=== PATIENT | male | born 1955 | race Native Hawaiian/Other Pacific Islander ===

== ENCOUNTER 2017-04-09 14:15 | Inpatient (IN) | payer OTHER ==
[2017-04-09 14:16] VITALS: BMI 34.7
[2017-04-09] MEDS ORDERED: Albuterol 0.083% Inhal Sol (2.5 mg/3 mL) UD IH STA (15:44)
[2017-04-09 15:52] LABS: BASO % 0.4 % (0.0-2.0); EOS # 0.2 K/uL (0.0-0.7); EOS % 1.8 % (0.0-4.0); HEMOGLOBIN 15.5 g/dL (12.0-18.0); LYMPH # 0.8 K/uL (1.0-4.3); LYMPH % 7.8 % (20.0-40.0); MEAN CELL VOLUME 88.5 fL (80.0-94.0); MEAN CORPUSCULAR HEMOGLOBIN 30.9 pg (27.0-31.0); MEAN CORPUSCULAR HGB CONC 34.9 g/dL (33.0-37.0); MEAN PLATELET VOLUME 8.8 fL (7.2-11.7); MONO # 1.1 K/uL (0.0-0.8); MONO % 10.7 % (0.0-10.0); NEUT # 8.3 K/uL (1.8-7.0); NEUT % 79.3 % (50.0-75.0); PLATELET COUNT 174 K/uL (130-400); RBC 5.02 Mil/uL (4.40-5.90); RED CELL DISTRIBUTION WIDTH 14.3 % (11.5-14.5); WHITE BLOOD COUNT 10.5 K/uL (4.8-10.8)
[2017-04-09] MEDS ORDERED: Albuterol 0.083% Inhal Sol (2.5 mg/3 mL) UD ONE (15:56)
[2017-04-09 16:08] LABS: INR 1.2; PROTHROMBIN TIME 13.6 SECONDS (9.7-12.2)
[2017-04-09 16:25] LABS: ALB/GLOB RATIO 1.1 (1.0-2.1); ALBUMIN 4.1 g/dL (3.5-5.0); CALCIUM 8.2 mg/dl (8.6-10.4)
[2017-04-09 16:35] LABS: CK-MB 5.06 ng/mL (0.0-3.38); TROPONIN I 0.077 ng/mL (0.00-0.120)
--- NOTE | 2017-04-09 16:37 | C.PDOC ---
History Of Present Illness 61-year-old male, presents to the emergency department complaining of productive cough with clear sputum x4 days, shortness of breath, and chills. He denies chest pain. Patient has an AICD, that has been in for approximately a year. Today, it "beeped" twice, but did not deliver any shocks. He denies palpitations. No other complaints at this time. Time Seen by Provider: 04/09/17 15:30 Chief Complaint (Nursing): Flu-like Symptoms Past Medical History Vital Signs: Last Vital Signs Temp 99.6 F 04/09/17 14:29 Pulse 97 H 04/09/17 14:29 Resp 18 04/09/17 14:29 BP 145/95 H 04/09/17 14:29 Pulse Ox 97 04/09/17 16:55 - Medical History PMH: Cardia Arrhythmia, CHF, HTN, Hypercholesterolemia, Kidney Stones, Chronic Kidney Disease Denies: Alzheimer's Disease, Anemia, Asthma, Bipolar Disorder, Bronchitis, COPD, Crohn's Disease, Depression, Diverticulitis, Emphysema, Fibromyalgia, Fractures, Gastrointestinal Ulcer, Gall Bladder Disease, HIV, Hyperthyroidism, Hypothyroidism, Migraine, Mitral Valve Prolapse, Osteoporosis, Pancreatitis, Paranoia, Parkinson's Disease, Peripheral Edema, Pneumonia, Post Traumatic Stress Disorder, Schizophrenia, Seizures, Sickle Cell Disease, Sexually Transmitted Disease, Sleep Apnea, TIA Surgical History: CABG, Coronary Stent, Pacemaker (ICD) Denies: Appendectomy, Cholecystectomy - [facility] Procedures CONTRAST ARTERIOGRAM-LEG (11/22/13) CORONAR ARTERIOGR-2 CATH (11/22/13) FLUOROSCOPY OF LEFT HEART USING LOW OSMOLAR CONTRAST (02/18/15) FLUOROSCOPY OF SINGLE CORONARY ARTERY USING L OSM CONTRAST (02/18/15) INJECT/INFUSE PLATELET INHIBITOR (11/22/13) INSERTION OF THREE VASCULAR STENTS (11/22/13) INSRT OF DRUG-ELUTING CORON ARTERY STENTS(S) (11/22/13) LEFT HEART CARDIAC CATH (11/22/13) LT HEART ANGIOCARDIOGRAM (11/22/13) MEASURE CARDIAC SAMPL & PRESSURE, BILATERAL, PERC (02/18/15) PERCUTANEOUS TRANSLUMINAL CORONARY ANGIOPLASTY [PTCA] (11/22/13) PROCEDURE ON SINGLE VESSEL (11/22/13) Family History: States: Unknown Family Hx - Social History Hx Alcohol Use: No Hx Substance Use: No - Immunization History Hx Tetanus Toxoid Vaccination: No Hx Influenza Vaccination: No Hx Pneumococcal Vaccination: No Review Of Systems Except As Marked, All Systems Reviewed And Found Negative. Constitutional: Negative for: Fever, Chills Cardiovascular: Negative for: Chest Pain Respiratory: Positive for: Cough, Sputum Gastrointestinal: Negative for: Nausea, Vomiting Musculoskeletal: Negative for: Back Pain Neurological: Negative for: Weakness, Numbness, Headache, Dizziness Physical Exam - Physical Exam Appears: Non-toxic, No Acute Distress, Other (coughing intermittently, able to speak in full sentences) Skin: Warm, Dry, No Rash Head: Atraumatic, Normacephalic Eye(s): bilateral: Normal Inspection, PERRL Nose: Normal Oral Mucosa: Moist Lips: Normal Appearing Neck: Normal ROM Chest: Symmetrical, Other ( AICD in left upper chest) Cardiovascular: Rhythm Regular, No Murmur Respiratory: No Accessory Muscle Use, Rales (B/L), Wheezing (scattered, expiratory.), Other (No accessory muscle use) Gastrointestinal/Abdominal: Soft, No Tenderness Extremity: Normal ROM, Pedal Edema (Pitting, trace, B/L) Neurological/Psych: Oriented x3, Normal Speech ED Course And Treatment - Laboratory Results Result Diagrams: 04/09/17 15:48 04/09/17 15:48 O2 Sat by Pulse Oximetry: 97 (on RA) Pulse Ox Interpretation: Normal - Radiology CXR: Interpreted by Me, Viewed By Me CXR Interpretation: Yes: Cardiomegaly, Other (AICD in place. No infiltrates or effusions) Progress Note: Bloodwork, Chest XR, Rapid flu ordered and reviewed. Patient treated with Duoneb, Lasix and Tessalon. Disposition - Disposition Forms: PT [facility] [facility] (Czech) - Scribe Statement The provider has reviewed the documentation as recorded by the Scribe (Maldonado Hernandez) All medical record entries made by the Scribe were at my direction and personally dictated by me. I have reviewed the chart and agree that the record accurately reflects my personal performance of the history, physical exam, medical decision making, and the department course for this patient. I have also personally directed, reviewed, and agree with the discharge instructions and disposition.
[2017-04-09 17:18] LABS: BANDS 8 % (0-2); EOSINOPHIL 5 % (0-4); LYMPHOCYTE 1 % (20-40); MICROCYTOSIS SLIGHT; MONOCYTE 10 % (0-10); NEUTROPHIL 76 % (50-75); PLATELET ESTIMATE NORMAL (NORMAL); TOTAL CELLS COUNTED 100
[2017-04-09 17:19] LABS: LARGE PLATELETS PRESENT
--- NOTE | 2017-04-09 17:36 | RAD ---
PROCEDURE: CHEST RADIOGRAPH, 1 VIEW HISTORY: SOB COMPARISON: Comparison is made with the previous study dated 02/25/2016 FINDINGS: LUNGS: No evidence of new infiltrate or consolidation in the lungs. PLEURA: No pneumothorax or pleural fluid seen. CARDIOVASCULAR: The cardiac silhouette is enlarged. Again seen is left-sided pacemaker in place. OSSEOUS STRUCTURES: No significant abnormalities. VISUALIZED UPPER ABDOMEN: Normal. OTHER FINDINGS: None. IMPRESSION: No active disease. Moderately enlarged cardiac silhouette.
--- NOTE | 2017-04-09 17:42 | CP.PCM.HP ---
History of Present Illness - History of Present Illness History of Present Illness: CC: "I keep coughing" Mr Otto is a 61 year old male with a PMHx of systolic CHF, CAD w/ hx of CO and 4 stents, HLD, AICD who presents to the ER with worsening shortness of breath. He says that 7 days ago he developed a sore throat which became progressively worse. He also began having coughing fits productive of white/ yellow/green/blood-tinged sputum. He took robitussin which didn't improve his symptoms. There is associated shortness of breath with the cough. He also states that yesterday during a coughing fit his AICD went off twice but did not shock him. He denies chest pain, abdominal pain, increased edema, focal deficits , diarrhea, nausea, fever. Pmhx: Cardia Arrhythmia with AICD, HTN, HLD, systolic CHF on LifeVest, CAD s/p 4 stents, Hx of CO (Nov 2014) Pshx: 4 coronary stents (Nov 2014 at [facility]); Triple bypass 2014; AICD 08/2015 Family Hx: dad- heart disease Social Hx: former smoker- used to smoke 3ppd x many years, quit in 1998. former ETOH use- drank heavily and does not drink anymore. denies illicit drug use. lives with brother. cannot work due to heart condition Allergies: benzalkonium chloride, contact metal agent, seafood PMD: [facility] Cardio: Seen by Dr. Landin in the past Present on Admission - Present on Admission Any Indicators Present on Admission: No Review of Systems - Constitutional Constitutional: absent: Chills, Fever, Weight Gain, Weight Loss - EENT Eyes: absent: Change in Vision - Cardiovascular Cardiovascular: Edema. absent: Chest Pain, Diaphoresis, Irregular Heart Rhythm - Respiratory Respiratory: Cough, Dyspnea on Exertion, Wheezing - Gastrointestinal Gastrointestinal: absent: Abdominal Pain, Constipation, Diarrhea - Genitourinary Genitourinary: absent: Dysuria - Neurological Neurological: absent: Dizziness Past Patient History - Infectious Disease Hx of Infectious Diseases: None - Tetanus Immunizations Tetanus Immunization: Unknown - Past Medical History & Family History Past Medical History?: Yes - Past Social History Smoking Status: Never Smoked - CARDIAC Hx Cardia Arrhythmia: Yes Hx Congestive Heart Failure: Yes Hx Hypercholesterolemia: Yes Hx Hypertension: Yes Hx Mitral Valve Prolapse: No Hx Pacemaker: Yes (ICD) Hx Peripheral Edema: No - PULMONARY Hx Asthma: No Hx Bronchitis: No Hx Chronic Obstructive Pulmonary Disease (COPD): No Hx Emphysema: No Hx Pneumonia: No Hx Sleep Apnea: No - NEUROLOGICAL Hx Alzheimer's Disease: No Hx Migraine: No Hx Parkinson's Disease: No Hx Seizures: No Hx Transient Ischemic Attacks (TIA): No - HEENT Hx HEENT Problems: No - RENAL Hx Chronic Kidney Disease: Yes Hx Kidney Stones: Yes - ENDOCRINE/METABOLIC Hx Hyperthyroidism: No Hx Hypothyroidism: No - HEMATOLOGICAL/ONCOLOGICAL Hx Anemia: No Hx Human Immunodeficiency Virus (HIV): No Hx Sickle Cell Disease: No - INTEGUMENTARY Hx Dermatological Problems: No - MUSCULOSKELETAL/RHEUMATOLOGICAL Hx Fractures: No Hx Osteoporosis: No - GASTROINTESTINAL Hx Crohn's Disease: No Hx Diverticulitis: No Hx Gall Bladder Disease: No Hx Pancreatitis: No - GENITOURINARY/GYNECOLOGICAL Hx Sexually Transmitted Disorders: No - PSYCHIATRIC Hx Bipolar Disorder: No Hx Depression: No Hx Paranoia: No Hx Post Traumatic Stress Disorder: No Hx Schizophrenia: No Hx Substance Use: No - SURGICAL HISTORY Hx Appendectomy: No Hx Cholecystectomy: No Hx Coronary Artery Bypass Graft: Yes Hx Coronary Stent: Yes - ANESTHESIA Hx Anesthesia: Yes Hx Anesthesia Reactions: No Hx Malignant Hyperthermia: No Meds Allergies/Adverse Reactions: Allergies Allergy/AdvReac Type Severity Reaction Status Date / Time benzalkonium chloride Allergy Verified 08/20/15 19:02 [From Merthiolate (benzalkonium)] contact metal agent Allergy Verified 08/20/15 19:02 seafood Allergy Uncoded 07/02/15 16:42 Physical Exam - Constitutional Appears: No Acute Distress, Chronically Ill - Head Exam Head Exam: ATRAUMATIC, NORMAL INSPECTION - Eye Exam Eye Exam: EOMI - ENT Exam ENT Exam: Mucous Membranes Moist, Normal Oropharynx - Neck Exam Neck exam: Positive for: Normal Inspection. Negative for: Tenderness - Respiratory Exam Respiratory Exam: Rales, Rhonchi, Wheezes, NORMAL BREATHING PATTERN - Cardiovascular Exam Cardiovascular Exam: REGULAR RHYTHM, +S1, +S2. absent: Bradycardia, Tachycardia , JVD, Systolic Murmur - GI/Abdominal Exam GI & Abdominal Exam: Normal Bowel Sounds, Soft. absent: Guarding, Rebound, Rigid, Tenderness - Extremities Exam Extremities exam: Positive for: normal inspection, pedal edema - Neurological Exam Neurological exam: Alert, CN II-XII Intact, Normal Gait, Oriented x3 - Psychiatric Exam Psychiatric exam: Normal Affect, Normal Mood - Skin Skin Exam: Intact, Normal Color, Warm Results - Vital Signs Recent Vital Signs: Last Vital Signs Temp 99.6 F 04/09/17 14:29 Pulse 97 H 04/09/17 14:29 Resp 18 04/09/17 14:29 BP 145/95 H 04/09/17 14:29 Pulse Ox 97 04/09/17 17:26 - Labs Result Diagrams: 04/09/17 15:48 04/09/17 15:48 Labs: Laboratory Results - last 24 hr 04/09/17 04/09/17 04/09/17 15:48 15:48 15:48 WBC 10.5 RBC 5.02 Hgb 15.5 Hct 44.4 MCV 88.5 MCH 30.9 MCHC 34.9 RDW 14.3 Plt Count 174 MPV 8.8 Neut % (Auto) 79.3 H Lymph % (Auto) 7.8 L Hart % (Auto) 10.7 H Eos % (Auto) 1.8 Baso % (Auto) 0.4 Neut # 8.3 H Lymph # 0.8 L Hart # 1.1 H Eos # 0.2 Baso # 0.0 Neutrophils % (Manual) 76 H Band Neutrophils % 8 H Lymphocytes % (Manual) 1 L Monocytes % (Manual) 10 Eosinophils % (Manual) 5 H Platelet Estimate Normal Large Platelets Present Microcytosis (manual) Slight PT 13.6 H INR 1.2 APTT 32 Sodium 131 L Potassium 3.6 Chloride 97 L Carbon Dioxide 24 Anion Gap 14 BUN 33 H Creatinine 1.7 H Est GFR ( Amer) 50 Est GFR (Non-Af Amer) 41 POC Glucose (mg/dL) Random Glucose 86 Calcium 8.2 L Total Bilirubin 1.5 H AST 58 ALT 33 Alkaline Phosphatase 58 Total Creatine Kinase 1067 H CK-MB (Mass) 5.06 H Troponin I 0.0770 NT-Pro-B Natriuret Pep 4930 H Total Protein 7.9 Albumin 4.1 Globulin 3.8 Albumin/Globulin Ratio 1.1 Influenza Typ A,B (EIA) 04/09/17 04/09/17 16:03 17:00 WBC RBC Hgb Hct MCV MCH MCHC RDW Plt Count MPV Neut % (Auto) Lymph % (Auto) Hart % (Auto) Eos % (Auto) Baso % (Auto) Neut # Lymph # Hart # Eos # Baso # Neutrophils % (Manual) Band Neutrophils % Lymphocytes % (Manual) Monocytes % (Manual) Eosinophils % (Manual) Platelet Estimate Large Platelets Microcytosis (manual) PT INR APTT Sodium Potassium Chloride Carbon Dioxide Anion Gap BUN Creatinine Est GFR ( Amer) Est GFR (Non-Af Amer) POC Glucose (mg/dL) 67 Random Glucose Calcium Total Bilirubin AST ALT Alkaline Phosphatase Total Creatine Kinase CK-MB (Mass) Troponin I NT-Pro-B Natriuret Pep Total Protein Albumin Globulin Albumin/Globulin Ratio Influenza Typ A,B (EIA) Negative for flu a/b Assessment & Plan (1) Cough Assessment and Plan: Cough associated with shortness of breath F/U Chest CT w/o contrast F/U Facial CT w/o contrast F/U strep pneumoniae Ag, legionella Ag, Mycoplasma IgM F/U Blood culture, Urine culture, Sputum culture Influenza swab NEGATIVE Meds: Moxifloxacin 400mg IVPB QD Duoneb 3ml INH RQ6H Solumedrol 40mg IVP BID Status: Acute Priority: Medium (2) Systolic CHF, chronic Assessment and Plan: Cardiology consult, Dr Doan Hx of CABG; Hx of 4 stents; Prior Echo showed EF of 20-25% Pro-bnp 4930 F/U Echo Con't home med Coreg 3.125mg PO BID Lasix 20mg IVP BID Con't home med Losartan 50mg PO QD Status: Chronic Priority: High (3) Hyperlipidemia Assessment and Plan: Lipid panel from 11/2016 NORMAL Crestor 5mg PO HS (home med atorvastatin not carried here) Status: Chronic Priority: Medium (4) Acute renal failure Assessment and Plan: Patient making normal urinary output monitor Status: Acute Priority: High (5) CAD (coronary artery disease) Assessment and Plan: Hx of CO 2014; Hx of 4 stents Troponins negative x1 F/U repeat Troponins con't home med plavix 75mg PO QD Status: Chronic Priority: High (6) Hx of gout Assessment and Plan: Con't home med allopurinol 100mg PO QD Status: Chronic Priority: Medium (7) HTN (hypertension) Assessment and Plan: BP well controlled con't home med coreg 3.125mg PO BID con't home med cozaar 50mg PO QD Status: Chronic Priority: High (8) Prophylactic measure Assessment and Plan: SCDs; con't home med plavix 75mg PO QD Protonix 40mg PO QD Heart healthy diet Status: Acute Priority: Low
[2017-04-09] MEDS ORDERED: Moxifloxacin IV 400mg/250ml NS 400 MG/250 ML BAG IVPB SCH (19:00)
[2017-04-09] MEDS: MethylPREDNISolone 40 mg Vial IVP SCH (21:20)
[2017-04-09 22:01] LABS: CK-MB 4.94 ng/mL (0.0-3.38); TROPONIN I 0.078 ng/mL (0.00-0.120)
[2017-04-10] MEDS: Albuterol-Ipratrop 3 mg / 0.5 (3 ml) UD INH SCH ×4 (02:01→21:41)
[2017-04-10 03:29] LABS: BASO % 0.3 % (0.0-2.0); HEMOGLOBIN 15.4 g/dL (12.0-18.0); LYMPH # 0.6 K/uL (1.0-4.3); LYMPH % 6.6 % (20.0-40.0); MEAN CELL VOLUME 89.5 fL (80.0-94.0); MEAN CORPUSCULAR HEMOGLOBIN 31.5 pg (27.0-31.0); MEAN CORPUSCULAR HGB CONC 35.2 g/dL (33.0-37.0); MEAN PLATELET VOLUME 9.5 fL (7.2-11.7); MONO # 0.2 K/uL (0.0-0.8); MONO % 2.1 % (0.0-10.0); NEUT # 8.3 K/uL (1.8-7.0); PLATELET COUNT 205 K/uL (130-400); RBC 4.89 Mil/uL (4.40-5.90); RED CELL DISTRIBUTION WIDTH 14.3 % (11.5-14.5); WHITE BLOOD COUNT 9.2 K/uL (4.8-10.8)
[2017-04-10] MEDS: Benzocaine/Menthol (Cepacol) Lozenge MT PRN (03:30)
[2017-04-10 04:07] LABS: CK-MB 4.28 ng/mL (0.0-3.38); TROPONIN I 0.076 ng/mL (0.00-0.120)
[2017-04-10 04:13] LABS: ALB/GLOB RATIO 1.1 (1.0-2.1); ALBUMIN 3.9 g/dL (3.5-5.0); CALCIUM 7.9 mg/dl (8.6-10.4); MAGNESIUM 2.1 mg/dL (1.6-2.3)
[2017-04-10 05:04] LABS: BANDS 1 % (0-2); LYMPHOCYTE 5 % (20-40); MONOCYTE 1 % (0-10); NEUTROPHIL 93 % (50-75); PLATELET ESTIMATE NORMAL (NORMAL); TOTAL CELLS COUNTED 100
[2017-04-10] MEDS: MethylPREDNISolone 40 mg Vial IVP SCH ×2 (10:25→17:40)
--- NOTE | 2017-04-10 11:01 | CT ---
CT chest without IV contrast Indication: possible URI; need to see fluid status; effusion? Technique: Contiguous axial images were obtained through the chest without intravenous contrast enhancement. Sagittal and coronal reconstructions were generated and reviewed. This CT exam was performed using 1 or more of the falling dose reduction techniques: Automated exposure control, adjustment of the MAA and/or kV according to patient size, and/or use of iterative reconstruction technique. Radiation dose (DLP): 506.64 MGy-cm. Comparison: Chest x-ray performed 04/09/27 Findings: Visualized portions of the inferior thyroid gland appear unremarkable. The unenhanced mediastinal and hilar vascular structures appear grossly unremarkable. Cardiomegaly. Streak artifact from patient's left-sided pacemaker. Median sternotomy wires. LAD coronary artery stent. Coronary artery calcifications. Discoid atelectasis or scar within the inferior aspect of the left upper lobe. Minimal bibasilar atelectasis. No focal consolidation. No pleural effusion. No pneumothorax. No suspicious pulmonary nodules measuring greater than 5 mm. Limited visualization of the noncontrast upper abdomen demonstrates cholelithiasis. Mild degenerative changes of the spine. Impression: No acute findings appreciated. Cholelithiasis. Cardiomegaly. Additional incidental findings as above. Preliminary impression was provided by virtual radiologic.
--- NOTE | 2017-04-10 13:39 | CARD ---
APPROVED REPORT EKG Measurement Heart [id number] <Conclusion> Atrial-sensed ventricular-paced rhythm Abnormal ECG
--- NOTE | 2017-04-10 14:16 | CP.PCM.PN ---
<Cris Archuleta - Last Filed: 04/10/17 14:11> Subjective - Date & Time of Evaluation Date of Evaluation: 04/10/17 Time of Evaluation: 09:00 - Subjective Subjective: Patient has been seen and examined. No overnight events reported. When asked how he is doing, he reports "surviving". He states that his SOB and cough are improved from yesterday but not resolved. He denies any chest pain, abdominal pain, changes in bowel habits, or urinary symptoms. Objective - Vital Signs/Intake and Output Vital Signs (last 24 hours): Temp Pulse Resp BP Pulse Ox 98.5 F 88 20 120/75 95 04/10/17 07:55 04/10/17 10:25 04/10/17 07:55 04/10/17 10:25 04/10/17 07:55 Intake and Output: 04/10/17 04/10/17 06:59 18:59 Intake Total 320 Output Total 1650 Balance -1330 - Medications Medications: Current Medications Albuterol/Ipratropium (Duoneb 3 Mg/0.5 Mg (3 Ml) Ud) 3 ml INH RQ6 [facility] Last Admin: 04/10/17 13:09 Dose: 3 ml Allopurinol (Zyloprim) 100 mg PO DAILY [facility] Last Admin: 04/10/17 10:24 Dose: 100 mg Benzocaine/Menthol (Cepacol Sore Throat) 1 kimberly MT Q2H PRN PRN Reason: Sore Throat Last Admin: 04/10/17 03:30 Dose: 1 kimberly Carvedilol (Coreg) 3.125 mg PO BID [facility] Last Admin: 04/10/17 10:25 Dose: 3.125 mg Clopidogrel Bisulfate (Plavix) 75 mg PO DAILY [facility] Last Admin: 04/10/17 10:24 Dose: 75 mg Famotidine (Pepcid) 20 mg PO DAILY [facility] Last Admin: 04/10/17 10:24 Dose: 20 mg Fluticasone Propionate (Flonase) 0 spr THERESA DAILY [facility] Furosemide (Lasix) 20 mg IVP BID [facility] Last Admin: 04/10/17 10:25 Dose: 20 mg Heparin Sodium (Porcine) (Heparin) 5,000 units SC Q12 [facility] Last Admin: 04/10/17 10:26 Dose: 5,000 units Doxycycline Hyclate 100 mg/ (Sodium Chloride) 100 mls @ 100 mls/hr IVPB Q12H [facility] Stop: 04/17/17 10:01 Last Admin: 04/10/17 10:24 Dose: 100 mls/hr Losartan Potassium (Cozaar) 50 mg PO DAILY [facility] Last Admin: 04/10/17 10:25 Dose: 50 mg Methylprednisolone (Solu-Medrol) 40 mg IVP BID [facility] Last Admin: 04/10/17 10:25 Dose: 40 mg Promethazine HCl/Codeine (Phenergan/Codeine Oral Syrup) 5 ml PO Q4 PRN PRN Reason: Cough Rosuvastatin Calcium (Crestor) 5 mg PO HS [facility] Last Admin: 04/09/17 21:30 Dose: 5 mg - Labs Labs: 04/10/17 03:22 04/10/17 03:22 PT 13.6 SECONDS (9.7-12.2) H 04/09/17 15:48 INR 1.2 04/09/17 15:48 APTT 32 SECONDS (21-34) 04/09/17 15:48 - Additional Findings Additional findings: - Constitutional Appears: No Acute Distress, Chronically Ill - Head Exam Head Exam: ATRAUMATIC, NORMAL INSPECTION - Eye Exam Eye Exam: EOMI - ENT Exam ENT Exam: Mucous Membranes Moist, Normal Oropharynx - Neck Exam Neck exam: Positive for: Normal Inspection. Negative for: Tenderness - Respiratory Exam Respiratory Exam: Rales, Rhonchi, Wheezes, NORMAL BREATHING PATTERN - Cardiovascular Exam Cardiovascular Exam: REGULAR RHYTHM, +S1, +S2. absent: Bradycardia, Tachycardia , JVD, Systolic Murmur - GI/Abdominal Exam GI & Abdominal Exam: Normal Bowel Sounds, Soft. absent: Guarding, Rebound, Rigid, Tenderness - Extremities Exam Extremities exam: Positive for: normal inspection, pedal edema - Neurological Exam Neurological exam: Alert, CN II-XII Intact, Normal Gait, Oriented x3 - Psychiatric Exam Psychiatric exam: Normal Affect, Normal Mood - Skin Skin Exam: Intact, Normal Color, Warm Assessment and Plan - Assessment and Plan (Free Text) Assessment: 61 year old male with a PMHx of systolic CHF, CAD w/ hx of MT and 4 stents, and HLD admitted for evaluation and treatment of SOB w/ cough. Plan: (1) Cough Cough associated with shortness of breath Chest CT w/o contrast (04/09/17): No acute findings. Cholelithiasis, Cardiomegaly , mild djd of spine. F/U Facial CT w/o contrast (04/09/17): Sinusitis, pending offical read. strep pneumoniae Ag - PENDING, legionella Ag - NEGATIVE, Mycoplasma IgM - PENDING Blood/Urine Cultures - PENDING Sputum Cultures - Last culture was contaminated, Reordered. Influenza swab NEGATIVE Meds: Moxifloxacin 400mg IVPB QD DC'd. Started Doxycycline for Sinusitis 100mg IVPB Q12H; Consider Augmentin vs Amoxicillin. Duoneb 3ml INH RQ6H Solumedrol 40mg IVP BID (2) Systolic CHF, chronic Cardiology consult, Dr Doan Hx of CABG; Hx of 4 stents; Prior Echo showed EF of 20-25% Pro-bnp 4930 on admission Repeat ECHO ordered yesterday. Patient has ECHO from 12/21/16 that shows severe systolic dysfunction with an EF of 15-20% Con't home med Coreg 3.125mg PO BID Lasix 20mg IVP BID Con't home med Losartan 50mg PO QD (3) Hyperlipidemia Lipid panel from 11/2016 NORMAL Crestor 5mg PO HS (home med atorvastatin not carried here) (4) Acute renal failure (Improving) Patient making normal urinary output monitor (5) CAD (coronary artery disease) Hx of MT 2014; Hx of 4 stents Troponins NEGATIVE x 3 con't home med plavix 75mg PO QD Total CK downtrending (6) Hx of gout Con't home med allopurinol 100mg PO QD (7) HTN (hypertension) BP well controlled con't home med coreg 3.125mg PO BID con't home med cozaar 50mg PO QD (8) Prophylactic measure Assessment and Plan: SCDs; con't home med plavix 75mg PO QD Protonix 40mg PO QD Heart healthy diet Dispo: Called KEE at to interrogate the AICD. Will follow up. Patient seen and discussed with Attending Cris Archuleta. <Eve Nogueira V - Last Filed: 04/10/17 19:21> Objective - Vital Signs/Intake and Output Vital Signs (last 24 hours): Temp Pulse Resp BP Pulse Ox 97.3 F L 80 20 117/77 95 04/10/17 15:10 04/10/17 17:54 04/10/17 15:10 04/10/17 17:54 04/10/17 15:10 Intake and Output: 04/10/17 04/11/17 18:59 06:59 Intake Total 1100 200 Output Total 300 Balance 800 200 - Medications Medications: Current Medications Albuterol/Ipratropium (Duoneb 3 Mg/0.5 Mg (3 Ml) Ud) 3 ml INH RQ6 [facility] Last Admin: 04/10/17 13:09 Dose: 3 ml Allopurinol (Zyloprim) 100 mg PO DAILY [facility] Last Admin: 04/10/17 10:24 Dose: 100 mg Benzocaine/Menthol (Cepacol Sore Throat) 1 kimberly MT Q2H PRN PRN Reason: Sore Throat Last Admin: 04/10/17 03:30 Dose: 1 kimberly Carvedilol (Coreg) 3.125 mg PO BID [facility] Last Admin: 04/10/17 17:40 Dose: 3.125 mg Clopidogrel Bisulfate (Plavix) 75 mg PO DAILY [facility] Last Admin: 04/10/17 10:24 Dose: 75 mg Famotidine (Pepcid) 20 mg PO DAILY [facility] Last Admin: 04/10/17 10:24 Dose: 20 mg Fluticasone Propionate (Flonase) 0 spr THERESA DAILY [facility] Furosemide (Lasix) 20 mg IVP BID [facility] Last Admin: 04/10/17 17:41 Dose: 20 mg Heparin Sodium (Porcine) (Heparin) 5,000 units SC Q12 [facility] Last Admin: 04/10/17 10:26 Dose: 5,000 units Doxycycline Hyclate 100 mg/ (Sodium Chloride) 100 mls @ 100 mls/hr IVPB Q12H [facility] Stop: 04/17/17 10:01 Last Admin: 04/10/17 10:24 Dose: 100 mls/hr Losartan Potassium (Cozaar) 50 mg PO DAILY [facility] Last Admin: 04/10/17 10:25 Dose: 50 mg Methylprednisolone (Solu-Medrol) 40 mg IVP BID [facility] Last Admin: 04/10/17 17:40 Dose: 40 mg Promethazine HCl/Codeine (Phenergan/Codeine Oral Syrup) 5 ml PO Q4 PRN PRN Reason: Cough Last Admin: 04/10/17 17:41 Dose: 5 ml Rosuvastatin Calcium (Crestor) 5 mg PO HS [facility] Last Admin: 04/09/17 21:30 Dose: 5 mg - Labs Labs: 04/10/17 03:22 04/10/17 03:22 PT 13.6 SECONDS (9.7-12.2) H 04/09/17 15:48 INR 1.2 04/09/17 15:48 APTT 32 SECONDS (21-34) 04/09/17 15:48 Attending/Attestation - Attestation I have personally seen and examined this patient.: Yes I have fully participated in the care of the patient.: Yes I have reviewed all pertinent clinical information, including history, physical exam and plan: Yes Notes (Text): Patient seen, examined, and case discussed with medical services manager. Patient with significant cardiac history including systolic congestive heart failure prior history of CABG, CAD, and a ICD placement comes in following unremitting cough in spite of Robitussin since [place] with associated hoarseness postnasal drip. Patient also reports his AICD beat twice but reports he did not feel any shock.. Patient on telemetry appears to have automatic tick uriostegui indicating that he is a ICD is working patient was due to be seen by manager nuclear last December but didn't could not follow-up patient has a pending follow-up appointment later this month at [place]. Case discussed with on-call manager nuclear Dr. Doan and [employer] Kee was called in regards to seen if AICD is working and AICD is working and is normal. Patient will likely be discharged tomorrow on antibiotic and supportive care for sinusitis. Assessment/Plan 1) Acute Sinusitis Cough * Cough associated with shortness of breath * Chest CT w/o contrast (04/09/17): No acute findings. Cholelithiasis, Cardiomegaly, mild djd of spine. * F/U Facial CT w/o contrast (04/09/17): Sinusitis,official read available on EMR * strep pneumoniae Ag - PENDING, legionella Ag - NEGATIVE, Mycoplasma IgM - PENDING * Blood/Urine Cultures - PENDING * Sputum Cultures - Last culture was contaminated, Reordered. * Influenza swab NEGATIVE * Meds: * Started Doxycycline for Sinusitis 100mg IVPB Q12H; Will consider Augmentin vs Amoxicillin if AICD is working approxiately * Duoneb 3ml INH RQ6H * Flonase * Promethazine w codeine 5ml PO Q4H PRN cough (2) Systolic CHF, chronic * Cardiology consult, Dr Doan * Aspirin 81mg PO daily * Plavix 75mg PO daily * Hx of CABG; Hx of 4 stents; Prior Echo showed EF of 20-25% * Pro-bnp 4930 on admission * Repeat ECHO ordered yesterday. * Patient has ECHO from 12/21/16 that shows severe systolic dysfunction with an EF of 15-20% * Con't home med Coreg 3.125mg PO BID * Lasix 20mg IVP BID * Con't home med Losartan 50mg PO QD (3) Hyperlipidemia * Lipid panel from 11/2016 NORMAL * Crestor 5mg PO HS (home med atorvastatin not carried here) (4) Acute on Chronic renal failure (Improving) * Patient making normal urinary output * Patient sees Dr. Fox's group as outpatient (5) CAD (coronary artery disease) * Hx of MT 2014; Hx of 4 stents * Troponins NEGATIVE x 3 * Aspirin 81mg Po daily * con't home med plavix 75mg PO QD * Total CK downtrending (6) Hx of gout * Con't home med allopurinol 100mg PO QD (7) HTN (hypertension) BP well controlled * con't home med coreg 3.125mg PO BID * con't home med cozaar 50mg PO QD (8) Prophylactic measure Assessment and Plan: * SCDs; con't home med plavix 75mg PO QD * Protonix 40mg PO QD * Heart healthy diet * heparin 5000 units [id number]
--- NOTE | 2017-04-10 16:15 | CP.PCM.CON ---
History of Present Illness - History of Present Illness History of Present Illness: Patient seen/ examined. AICD interrogated.. no events. normal battery life. Past Patient History - Infectious Disease Hx of Infectious Diseases: None - Tetanus Immunizations Tetanus Immunization: Unknown - Past Medical History & Family History Past Medical History?: Yes - Past Social History Smoking Status: Former Smoker - CARDIAC Hx Cardia Arrhythmia: Yes Hx Congestive Heart Failure: Yes Hx Hypercholesterolemia: Yes Hx Hypertension: Yes Hx Mitral Valve Prolapse: No Hx Pacemaker: Yes (ICD) Hx Peripheral Edema: No - PULMONARY Hx Respiratory Disorders: No Hx Asthma: No Hx Bronchitis: No Hx Chronic Obstructive Pulmonary Disease (COPD): No Hx Emphysema: No Hx Pneumonia: No Hx Sleep Apnea: No - NEUROLOGICAL Hx Neurological Disorder: No Hx Alzheimer's Disease: No Hx Migraine: No Hx Parkinson's Disease: No Hx Seizures: No Hx Transient Ischemic Attacks (TIA): No - HEENT Hx HEENT Problems: No - RENAL Hx Chronic Kidney Disease: Yes Hx Kidney Stones: Yes - ENDOCRINE/METABOLIC Hx Endocrine Disorders: No Hx Hyperthyroidism: No Hx Hypothyroidism: No - HEMATOLOGICAL/ONCOLOGICAL Hx Anemia: No Hx Human Immunodeficiency Virus (HIV): No Hx Sickle Cell Disease: No - INTEGUMENTARY Hx Dermatological Problems: No - MUSCULOSKELETAL/RHEUMATOLOGICAL Hx Musculoskeletal Disorders: No Hx Falls: No Hx Fractures: No Hx Osteoporosis: No - GASTROINTESTINAL Hx Gastrointestinal Disorders: No Hx Crohn's Disease: No Hx Diverticulitis: No Hx Gall Bladder Disease: No Hx Pancreatitis: No - GENITOURINARY/GYNECOLOGICAL Hx Genitourinary Disorders: No Hx Sexually Transmitted Disorders: No - PSYCHIATRIC Hx Psychophysiologic Disorder: No Hx Bipolar Disorder: No Hx Depression: No Hx Paranoia: No Hx Post Traumatic Stress Disorder: No Hx Schizophrenia: No Hx Substance Use: No - SURGICAL HISTORY Hx Surgeries: Yes Hx Appendectomy: No Hx Cholecystectomy: No Hx Coronary Artery Bypass Graft: Yes Hx Coronary Stent: Yes Other/Comment: AICD 2016 - ANESTHESIA Hx Anesthesia: Yes Hx Anesthesia Reactions: No Hx Malignant Hyperthermia: No Meds Allergies/Adverse Reactions: Allergies Allergy/AdvReac Type Severity Reaction Status Date / Time benzalkonium chloride Allergy Verified 08/20/15 19:02 [From Merthiolate (benzalkonium)] contact metal agent Allergy Verified 08/20/15 19:02 seafood Allergy Uncoded 07/02/15 16:42 - Medications Medications: Current Medications Albuterol/Ipratropium (Duoneb 3 Mg/0.5 Mg (3 Ml) Ud) 3 ml INH RQ6 [facility] Last Admin: 04/10/17 13:09 Dose: 3 ml Allopurinol (Zyloprim) 100 mg PO DAILY [facility] Last Admin: 04/10/17 10:24 Dose: 100 mg Benzocaine/Menthol (Cepacol Sore Throat) 1 kimberly MT Q2H PRN PRN Reason: Sore Throat Last Admin: 04/10/17 03:30 Dose: 1 kimberly Carvedilol (Coreg) 3.125 mg PO BID [facility] Last Admin: 04/10/17 10:25 Dose: 3.125 mg Clopidogrel Bisulfate (Plavix) 75 mg PO DAILY [facility] Last Admin: 04/10/17 10:24 Dose: 75 mg Famotidine (Pepcid) 20 mg PO DAILY [facility] Last Admin: 04/10/17 10:24 Dose: 20 mg Fluticasone Propionate (Flonase) 0 spr THERESA DAILY [facility] Furosemide (Lasix) 20 mg IVP BID [facility] Last Admin: 04/10/17 10:25 Dose: 20 mg Heparin Sodium (Porcine) (Heparin) 5,000 units SC Q12 [facility] Last Admin: 04/10/17 10:26 Dose: 5,000 units Doxycycline Hyclate 100 mg/ (Sodium Chloride) 100 mls @ 100 mls/hr IVPB Q12H [facility] Stop: 04/17/17 10:01 Last Admin: 04/10/17 10:24 Dose: 100 mls/hr Losartan Potassium (Cozaar) 50 mg PO DAILY [facility] Last Admin: 04/10/17 10:25 Dose: 50 mg Methylprednisolone (Solu-Medrol) 40 mg IVP BID [facility] Last Admin: 04/10/17 10:25 Dose: 40 mg Promethazine HCl/Codeine (Phenergan/Codeine Oral Syrup) 5 ml PO Q4 PRN PRN Reason: Cough Rosuvastatin Calcium (Crestor) 5 mg PO HS [facility] Last Admin: 04/09/17 21:30 Dose: 5 mg Results - Vital Signs Recent Vital Signs: Last Vital Signs Temp 97.3 F L 04/10/17 15:10 Pulse 74 04/10/17 15:10 Resp 20 04/10/17 15:10 BP 106/64 04/10/17 15:10 Pulse Ox 95 04/10/17 15:10 - Labs Result Diagrams: 04/10/17 03:22 04/10/17 03:22 Labs: Laboratory Results - last 24 hr 04/09/17 04/09/17 04/09/17 11:56 15:48 15:48 WBC RBC Hgb Hct MCV MCH MCHC RDW Plt Count MPV Neut % (Auto) Lymph % (Auto) Coffee % (Auto) Eos % (Auto) Baso % (Auto) Neut # Lymph # Coffee # Eos # Baso # Neutrophils % (Manual) 76 H Band Neutrophils % 8 H Lymphocytes % (Manual) 1 L Monocytes % (Manual) 10 Eosinophils % (Manual) 5 H Platelet Estimate Normal Large Platelets Present RBC Morphology Microcytosis (manual) Slight Sodium 131 L Potassium 3.6 Chloride 97 L Carbon Dioxide 24 Anion Gap 14 BUN 33 H Creatinine 1.7 H Est GFR ( Amer) 50 Est GFR (Non-Af Amer) 41 POC Glucose (mg/dL) Random Glucose 86 Calcium 8.2 L Phosphorus Magnesium Total Bilirubin 1.5 H AST 58 ALT 33 Alkaline Phosphatase 58 Total Creatine Kinase 1067 H CK-MB (Mass) 5.06 H Troponin I 0.0770 NT-Pro-B Natriuret Pep 4930 H Total Protein 7.9 Albumin 4.1 Globulin 3.8 Albumin/Globulin Ratio 1.1 Procalcitonin Influenza Typ A,B (EIA) Ur L.pneumophila Ag Negative 04/09/17 04/09/17 04/09/17 16:03 17:00 21:13 WBC RBC Hgb Hct MCV MCH MCHC RDW Plt Count MPV Neut % (Auto) Lymph % (Auto) Coffee % (Auto) Eos % (Auto) Baso % (Auto) Neut # Lymph # Coffee # Eos # Baso # Neutrophils % (Manual) Band Neutrophils % Lymphocytes % (Manual) Monocytes % (Manual) Eosinophils % (Manual) Platelet Estimate Large Platelets RBC Morphology Microcytosis (manual) Sodium Potassium Chloride Carbon Dioxide Anion Gap BUN Creatinine Est GFR ( Amer) Est GFR (Non-Af Amer) POC Glucose (mg/dL) 67 Random Glucose Calcium Phosphorus Magnesium Total Bilirubin AST ALT Alkaline Phosphatase Total Creatine Kinase CK-MB (Mass) Troponin I NT-Pro-B Natriuret Pep Total Protein Albumin Globulin Albumin/Globulin Ratio Procalcitonin 0.07 L Influenza Typ A,B (EIA) Negative for flu a/b Ur L.pneumophila Ag 04/09/17 04/10/17 04/10/17 21:13 03:22 03:22 WBC 9.2 RBC 4.89 Hgb 15.4 Hct 43.8 MCV 89.5 MCH 31.5 H MCHC 35.2 RDW 14.3 Plt Count 205 MPV 9.5 Neut % (Auto) 91.0 H Lymph % (Auto) 6.6 L Coffee % (Auto) 2.1 Eos % (Auto) 0.0 Baso % (Auto) 0.3 Neut # 8.3 H Lymph # 0.6 L Coffee # 0.2 Eos # 0.0 Baso # 0.0 Neutrophils % (Manual) 93 H Band Neutrophils % 1 Lymphocytes % (Manual) 5 L Monocytes % (Manual) 1 Eosinophils % (Manual) Platelet Estimate Normal Large Platelets RBC Morphology Normal Microcytosis (manual) Sodium 132 Potassium 4.0 Chloride 99 Carbon Dioxide 22 Anion Gap 15 BUN 38 H Creatinine 1.6 H Est GFR ( Amer) 53 Est GFR (Non-Af Amer) 44 POC Glucose (mg/dL) Random Glucose 137 H Calcium 7.9 L Phosphorus 4.2 Magnesium 2.1 Total Bilirubin 1.1 AST 63 H ALT 25 Alkaline Phosphatase 45 Total Creatine Kinase 994 H CK-MB (Mass) 4.94 H Troponin I 0.0780 NT-Pro-B Natriuret Pep Total Protein 7.6 Albumin 3.9 Globulin 3.7 Albumin/Globulin Ratio 1.1 Procalcitonin Influenza Typ A,B (EIA) Ur L.pneumophila Ag 04/10/17 03:22 WBC RBC Hgb Hct MCV MCH MCHC RDW Plt Count MPV Neut % (Auto) Lymph % (Auto) Coffee % (Auto) Eos % (Auto) Baso % (Auto) Neut # Lymph # Coffee # Eos # Baso # Neutrophils % (Manual) Band Neutrophils % Lymphocytes % (Manual) Monocytes % (Manual) Eosinophils % (Manual) Platelet Estimate Large Platelets RBC Morphology Microcytosis (manual) Sodium Potassium Chloride Carbon Dioxide Anion Gap BUN Creatinine Est GFR ( Amer) Est GFR (Non-Af Amer) POC Glucose (mg/dL) Random Glucose Calcium Phosphorus Magnesium Total Bilirubin AST ALT Alkaline Phosphatase Total Creatine Kinase 806 H CK-MB (Mass) 4.28 H Troponin I 0.0760 NT-Pro-B Natriuret Pep Total Protein Albumin Globulin Albumin/Globulin Ratio Procalcitonin Influenza Typ A,B (EIA) Ur L.pneumophila Ag
[2017-04-10] MEDS: Promethazine/Cod 6.25mg-10mg/5ml Syr UD PO PRN (17:41)
--- NOTE | 2017-04-10 17:45 | CT ---
PROCEDURE: CT ORBITS WITHOUT CONTRAST. HISTORY: cough for 7 days; nasal congestion COMPARISON: None available. TECHNIQUE: Axial CT images of the orbits were obtained. Coronal and sagittal reformats were generated. Radiation dose: Total exam DLP = 639.88 mGy-cm. This CT exam was performed using one or more of the following dose reduction techniques: Automated exposure control, adjustment of the mA and/or kV according to patient size, and/or use of iterative reconstruction technique. FINDINGS: RIGHT ORBIT: RIGHT BONY ORBIT: Normal. RIGHT INTRAORBITAL STRUCTURES: Globe: Normal. Extraocular muscles: Normal. Post septal space: Normal. Optic Nerve: Normal. Lacrimal Apparatus: Normal. RIGHT PRESEPTAL SOFT TISSUES: Normal. LEFT ORBIT: LEFT BONY ORBIT: Normal. LEFT INTRAORBITAL STRUCTURES: Globe: Normal. Extraocular muscles: Normal. Post septal space: Normal Optic Nerve: Normal. . Lacrimal Apparatus: Normal. LEFT PRESEPTAL SOFT TISSUES: Normal. OTHER: Mccarthy sinusitis with evidence of acute and chronic sinusitis left maxillary sinus. Severe ethmoid air cell disease with sparing of the adjacent sphenoid air cells. Mild frontal sinusitis. Bilateral 0 MU complex disease. Clear mastoid air cells. IMPRESSION: Mccarthy sinusitis. Evidence of acute left maxillary sinusitis. No acute osseous abnormalities. No abnormalities with respect to the globe or retro Conal structures. Concordant results (preliminary interpretation) provided by [employer]. Procedure Completed: 19:38 Preliminary ([facility]) Report: Dictated and Authenticated: 19:59 April 09, 2017. Final Interpretation: 17:43 .
[2017-04-11] MEDS: Albuterol-Ipratrop 3 mg / 0.5 (3 ml) UD INH SCH ×4 (01:47→20:58)
[2017-04-11 07:51] LABS: BASO % 0.1 % (0.0-2.0); HEMOGLOBIN 14.9 g/dL (12.0-18.0); LYMPH # 0.5 K/uL (1.0-4.3); LYMPH % 3.7 % (20.0-40.0); MEAN CELL VOLUME 88.9 fL (80.0-94.0); MEAN CORPUSCULAR HEMOGLOBIN 30.4 pg (27.0-31.0); MEAN CORPUSCULAR HGB CONC 34.2 g/dL (33.0-37.0); MEAN PLATELET VOLUME 9.3 fL (7.2-11.7); MONO # 0.7 K/uL (0.0-0.8); MONO % 4.5 % (0.0-10.0); NEUT # 13.7 K/uL (1.8-7.0); NEUT % 91.7 % (50.0-75.0); PLATELET COUNT 210 K/uL (130-400); RBC 4.89 Mil/uL (4.40-5.90); RED CELL DISTRIBUTION WIDTH 14.2 % (11.5-14.5); WHITE BLOOD COUNT 14.9 K/uL (4.8-10.8)
[2017-04-11 08:21] LABS: ALB/GLOB RATIO 1.1 (1.0-2.1); ALBUMIN 3.8 g/dL (3.5-5.0)
[2017-04-11 09:30] LABS: LYMPHOCYTE 2 % (20-40); MONOCYTE 5 % (0-10); NEUTROPHIL 93 % (50-75); PLATELET ESTIMATE NORMAL (NORMAL); TOTAL CELLS COUNTED 100
[2017-04-11] MEDS ORDERED: Sodium Chloride 0.9% 1,000 ML IV SCH (10:00)
[2017-04-11] MEDS: Fluticasone Nasal 50 mcg/Spray NAS SCH (10:31)
[2017-04-11] MEDS: Benzocaine/Menthol (Cepacol) Lozenge MT PRN (12:13)
[2017-04-11] MEDS: Promethazine/Cod 6.25mg-10mg/5ml Syr UD PO PRN (12:13)
[2017-04-11 14:12] LABS: URINE BILIRUBIN NEGATIVE (NEGATIVE); URINE BLOOD NEGATIVE (NEGATIVE); URINE CLARITY Clear (Clear); URINE COLOR Straw (YELLOW); URINE GLUCOSE (UA) NORMAL (Normal); URINE LEUKOCYTE ESTERASE NEG Leu/uL (Negative); URINE NITRATE NEGATIVE (NEGATIVE); URINE PROTEIN NEGATIVE (NEGATIVE); URINE UROBILINOGEN NORMAL mg/dL (0.2-1.0)
[2017-04-11] MEDS: MethylPREDNISolone 40 mg Vial IVP SCH ×2 (14:51→21:48)
--- NOTE | 2017-04-11 15:03 | CP.PCM.PN ---
<Cris Archuleta - Last Filed: 04/11/17 14:57> Subjective - Date & Time of Evaluation Date of Evaluation: 04/11/17 Time of Evaluation: 09:00 - Subjective Subjective: Patient has been seen and examined. No overnight events reported. Patient states is cough and SOB are slightly improved from yesterday. He does complain of some urinary retention. Denies any dysuria, inconstinence, or abdominal pain. Objective - Vital Signs/Intake and Output Vital Signs (last 24 hours): Temp Pulse Resp BP Pulse Ox 97.6 F 82 20 126/67 96 04/11/17 08:10 04/11/17 12:10 04/11/17 08:10 04/11/17 12:11 04/11/17 08:10 Intake and Output: 04/11/17 04/11/17 06:59 18:59 Intake Total 400 Output Total 380 Balance 20 - Medications Medications: Current Medications Albuterol/Ipratropium (Duoneb 3 Mg/0.5 Mg (3 Ml) Ud) 3 ml INH RQ6 [facility] Last Admin: 04/11/17 13:06 Dose: 3 ml Allopurinol (Zyloprim) 100 mg PO DAILY [facility] Last Admin: 04/11/17 10:30 Dose: 100 mg Aspirin (Aspirin Chewable) 81 mg PO DAILY [facility] Last Admin: 04/11/17 10:30 Dose: 81 mg Benzocaine/Menthol (Cepacol Sore Throat) 1 kimberly MT Q2H PRN PRN Reason: Sore Throat Last Admin: 04/11/17 12:13 Dose: 1 kimberly Carvedilol (Coreg) 3.125 mg PO BID [facility] Last Admin: 04/11/17 10:29 Dose: 3.125 mg Clopidogrel Bisulfate (Plavix) 75 mg PO DAILY [facility] Last Admin: 04/11/17 10:30 Dose: 75 mg Famotidine (Pepcid) 20 mg PO DAILY [facility] Last Admin: 04/11/17 10:29 Dose: 20 mg Fluticasone Propionate (Flonase) 0 spr THERESA DAILY [facility] Last Admin: 04/11/17 10:31 Dose: 1 spr Furosemide (Lasix) 20 mg PO BID [facility] Last Admin: 04/11/17 12:11 Dose: 20 mg Heparin Sodium (Porcine) (Heparin) 5,000 units SC Q12 [facility] Last Admin: 04/11/17 10:31 Dose: 5,000 units Doxycycline Hyclate 100 mg/ (Sodium Chloride) 100 mls @ 100 mls/hr IVPB Q12H [facility] Stop: 04/17/17 10:01 Last Admin: 04/11/17 10:28 Dose: 100 mls/hr Methylprednisolone (Solu-Medrol) 40 mg IVP Q8 [facility] Last Admin: 04/11/17 14:51 Dose: 40 mg Promethazine HCl/Codeine (Phenergan/Codeine Oral Syrup) 5 ml PO Q4 PRN PRN Reason: Cough Last Admin: 04/11/17 12:13 Dose: 5 ml Rosuvastatin Calcium (Crestor) 5 mg PO HS [facility] Last Admin: 04/10/17 21:23 Dose: 5 mg - Labs Labs: 04/11/17 07:40 04/11/17 07:40 PT 13.6 SECONDS (9.7-12.2) H 04/09/17 15:48 INR 1.2 04/09/17 15:48 APTT 32 SECONDS (21-34) 04/09/17 15:48 - Additional Findings Additional findings: - Constitutional Appears: No Acute Distress, Chronically Ill - Head Exam Head Exam: ATRAUMATIC, NORMAL INSPECTION - Eye Exam Eye Exam: EOMI - ENT Exam ENT Exam: Mucous Membranes Moist, Normal Oropharynx - Neck Exam Neck exam: Positive for: Normal Inspection. Negative for: Tenderness - Respiratory Exam Respiratory Exam: Rales (improving), Wheezes (improving), NORMAL BREATHING PATTERN - Cardiovascular Exam Cardiovascular Exam: REGULAR RHYTHM, +S1, +S2. absent: Bradycardia, Tachycardia , JVD, Systolic Murmur - GI/Abdominal Exam GI & Abdominal Exam: Normal Bowel Sounds, Soft. absent: Guarding, Rebound, Rigid, Tenderness - Extremities Exam Extremities exam: Positive for: normal inspection, pedal edema - Neurological Exam Neurological exam: Alert, CN II-XII Intact, Normal Gait, Oriented x3 - Psychiatric Exam Psychiatric exam: Normal Affect, Normal Mood - Skin Skin Exam: Intact, Normal Color, Warm Assessment and Plan - Assessment and Plan (Free Text) Assessment: 61 year old male with a PMHx of systolic CHF, CAD w/ hx of MN and 4 stents, and HLD admitted for evaluation and treatment of SOB w/ cough. Plan: (1) Cough Cough associated with shortness of breath Chest CT w/o contrast (04/09/17): No acute findings. Cholelithiasis, Cardiomegaly , mild djd of spine. F/U Facial CT w/o contrast (04/09/17): Sinusitis, pending offical read. strep pneumoniae Ag - PENDING, legionella Ag - NEGATIVE, Mycoplasma IgM - PENDING Blood/Urine Cultures - PENDING Sputum Cultures - Last culture was contaminated, Reordered. Influenza swab NEGATIVE Meds: Cont. Doxycycline for Sinusitis 100mg IVPB Q12H; Consider Augmentin vs Amoxicillin. Duoneb 3ml INH RQ6H Solumedrol 40mg IVP BID (2) Systolic CHF, chronic Cardiology consult, Dr Doan Hx of CABG; Hx of 4 stents; Prior Echo showed EF of 20-25% Pro-bnp 4930 on admission Repeat ECHO ordered on 04/09/17. Not yet done Patient has ECHO from 12/21/16 that shows severe systolic dysfunction with an EF of 15-20% Con't home med Coreg 3.125mg PO BID Lasix 20mg PO BID Con't home med Losartan 50mg PO QD (3) Hyperlipidemia Lipid panel from 11/2016 NORMAL Crestor 5mg PO HS (home med atorvastatin not carried here) (4) Acute renal failure (Improving) Cr elevated to 2.2. Likely Pre-Renal etiology from being over-diuresed Decreased Flomax to 20mg PO BID (5) CAD (coronary artery disease) Hx of MN 2014; Hx of 4 stents Troponins NEGATIVE x 3 con't home med plavix 75mg PO QD Total CK downtrending (6) Hx of gout Con't home med allopurinol 100mg PO QD (7) HTN (hypertension) BP well controlled con't home med coreg 3.125mg PO BID con't home med cozaar 50mg PO QD (8) Prophylactic measure SCDs; con't home med plavix 75mg PO QD Protonix 40mg PO QD Heart healthy diet Dispo: Called [facility] at to interrogate the AICD. AICD is okay. WIll likely go home tomorrow if renal function has improved. Patient seen and discussed with Attending Cris Archuleta. <Eve Nogueira V - Last Filed: 04/11/17 22:58> Objective - Vital Signs/Intake and Output Vital Signs (last 24 hours): Temp Pulse Resp BP Pulse Ox 97.4 F L 83 16 122/76 95 04/11/17 22:01 04/11/17 22:01 04/11/17 22:01 04/11/17 22:01 04/11/17 15:30 Intake and Output: 04/11/17 04/12/17 18:59 06:59 Intake Total 240 220 Output Total 400 200 Balance -160 20 - Medications Medications: Current Medications Albuterol/Ipratropium (Duoneb 3 Mg/0.5 Mg (3 Ml) Ud) 3 ml INH RQ6 [facility] Last Admin: 04/11/17 20:58 Dose: 3 ml Allopurinol (Zyloprim) 100 mg PO DAILY [facility] Last Admin: 04/11/17 10:30 Dose: 100 mg Aspirin (Aspirin Chewable) 81 mg PO DAILY [facility] Last Admin: 04/11/17 10:30 Dose: 81 mg Benzocaine/Menthol (Cepacol Sore Throat) 1 kimberly MT Q2H PRN PRN Reason: Sore Throat Last Admin: 04/11/17 12:13 Dose: 1 kimberly Carvedilol (Coreg) 3.125 mg PO BID [facility] Last Admin: 04/11/17 17:39 Dose: 3.125 mg Clopidogrel Bisulfate (Plavix) 75 mg PO DAILY [facility] Last Admin: 04/11/17 10:30 Dose: 75 mg Famotidine (Pepcid) 20 mg PO DAILY [facility] Last Admin: 04/11/17 10:29 Dose: 20 mg Fluticasone Propionate (Flonase) 0 spr THERESA DAILY [facility] Last Admin: 04/11/17 10:31 Dose: 1 spr Heparin Sodium (Porcine) (Heparin) 5,000 units SC Q12 [facility] Last Admin: 04/11/17 21:49 Dose: 5,000 units Doxycycline Hyclate 100 mg/ (Sodium Chloride) 100 mls @ 100 mls/hr IVPB Q12H [facility] Stop: 04/17/17 10:01 Last Admin: 04/11/17 21:48 Dose: 100 mls/hr Methylprednisolone (Solu-Medrol) 40 mg IVP Q8 [facility] Last Admin: 04/11/17 21:48 Dose: 40 mg Promethazine HCl/Codeine (Phenergan/Codeine Oral Syrup) 5 ml PO Q4 PRN PRN Reason: Cough Last Admin: 04/11/17 12:13 Dose: 5 ml Rosuvastatin Calcium (Crestor) 5 mg PO HS [facility] Last Admin: 04/11/17 21:49 Dose: 5 mg - Labs Labs: 04/11/17 07:40 04/11/17 07:40 PT 13.6 SECONDS (9.7-12.2) H 04/09/17 15:48 INR 1.2 04/09/17 15:48 APTT 32 SECONDS (21-34) 04/09/17 15:48 Attending/Attestation - Attestation I have personally seen and examined this patient.: Yes I have fully participated in the care of the patient.: Yes I have reviewed all pertinent clinical information, including history, physical exam and plan: Yes Notes (Text): Patient seen, examined, and case discussed with medical technical writer. Patient reports cough has improved slightly but he has not been asking for the cough syrup, he was unaware it was available and that it was in liquid form. Patient reports nasal breathing improved with Flonase. Patient's creatinine increased slightly, suspected due to diuretic. Consult nephrology, since patient sees Dr. Fox's group as outpatient and next appointment is in June. Discussed case with Dr. Yates, hold diuretic and hold arb and see if Cr improves. Will continue patient on IV abx, lower Iv steroids, and continue supportive care to improve nasal congestion and cough Assessment/Plan 1) Acute Sinusitis Cough * Cough associated with shortness of breath * Chest CT w/o contrast (04/09/17): No acute findings. Cholelithiasis, Cardiomegaly, mild djd of spine. * F/U Facial CT w/o contrast (04/09/17): Sinusitis,official read available on EMR * strep pneumoniae Ag - PENDING, legionella Ag - NEGATIVE, Mycoplasma IgM - negative * Blood/Urine Cultures - PENDING * Sputum Cultures - Last culture was contaminated, Reordered. * Influenza swab NEGATIVE * Meds: * Started Doxycycline for Sinusitis 100mg IVPB Q12H; Will consider Augmentin vs Amoxicillin if AICD is working approxiately * Duoneb 3ml INH RQ6H * Flonase for nasal cogestion * Promethazine w codeine 5ml PO Q4H PRN cough (2) Systolic CHF, chronic * Cardiology consult, Dr Doan * Aspirin 81mg PO daily * Plavix 75mg PO daily * Hx of CABG; Hx of 4 stents; Prior Echo showed EF of 20-25% * Pro-bnp 4930 on admission * Repeat ECHO ordered yesterday-->official report pending * Patient has ECHO from 12/21/16 that shows severe systolic dysfunction with an EF of 15-20% * Con't home med Coreg 3.125mg PO BID * d/c Lasix 20mg IVP BID--Patient feels dehydrated and rise in Cr. * d/c home med Losartan 50mg PO QD (3) Hyperlipidemia * Lipid panel from 11/2016 NORMAL * Crestor 5mg PO HS (home med atorvastatin not carried here) (4) Acute on Chronic renal failure * Creatinine rising * Diuretic and ARB held by nephrology * Patient making normal urinary output * Patient sees Dr. Fox's group as outpatient (5) CAD (coronary artery disease) * Hx of MN 2014; Hx of 4 stents * Troponins NEGATIVE x 3 * Aspirin 81mg Po daily * con't home med plavix 75mg PO QD * Total CK downtrending (6) Hx of gout * Con't home med allopurinol 100mg PO QD (7) HTN (hypertension) BP well controlled * con't home med coreg 3.125mg PO BID * held home med cozaar 50mg PO QD given rise in Creatinine (8) Prophylactic measure Assessment and Plan: * SCDs; con't home med plavix 75mg PO QD * Protonix 40mg PO QD * Heart healthy diet * heparin 5000 units [id number]
--- NOTE | 2017-04-11 15:20 | CP.PCM.CON ---
History of Present Illness - History of Present Illness History of Present Illness: Renal consult for gerardo on ckd 61 yo male with severely reduced EF, AICD, CKD 3, CAD, 4 coronary stents, presents with cough x several days, associated with AICD alarming. Pt sees Dr. Gonzalez in the office, creatinine around 1.5-17. Now with rise to 2.2. Pt noted to have pansinusitis. Xray of chest does not reveal pulmonary vascular congestion. Pt notes no edema and says he feels dehydrated Review of Systems - Constitutional Constitutional: Fatigue. absent: Lethargy - EENT Eyes: absent: Blurred Vision, Diplopia Nose/Mouth/Throat: Nasal Congestion, Sinus Pain - Cardiovascular Cardiovascular: absent: Chest Pain, Dyspnea - Respiratory Respiratory: Cough, Wheezing - Gastrointestinal Gastrointestinal: absent: Bloating, Constipation - Genitourinary Genitourinary: absent: Change in Urinary Stream, Difficulty Urinating - Musculoskeletal Musculoskeletal: absent: Abnormal Gait, Joint Swelling - Hematologic/Lymphatic Hematologic: absent: Easy Bleeding, Easy Bruising Past Patient History - Infectious Disease Hx of Infectious Diseases: None - Tetanus Immunizations Tetanus Immunization: Unknown - Past Medical History & Family History Past Medical History?: Yes - Past Social History Smoking Status: Former Smoker - CARDIAC Hx Cardia Arrhythmia: Yes Hx Congestive Heart Failure: Yes Hx Hypercholesterolemia: Yes Hx Hypertension: Yes Hx Mitral Valve Prolapse: No Hx Pacemaker: Yes (ICD) Hx Peripheral Edema: No - PULMONARY Hx Respiratory Disorders: No Hx Asthma: No Hx Bronchitis: No Hx Chronic Obstructive Pulmonary Disease (COPD): No Hx Emphysema: No Hx Pneumonia: No Hx Sleep Apnea: No - NEUROLOGICAL Hx Neurological Disorder: No Hx Alzheimer's Disease: No Hx Migraine: No Hx Parkinson's Disease: No Hx Seizures: No Hx Transient Ischemic Attacks (TIA): No - HEENT Hx HEENT Problems: No - RENAL Hx Chronic Kidney Disease: Yes Hx Kidney Stones: Yes - ENDOCRINE/METABOLIC Hx Endocrine Disorders: No Hx Hyperthyroidism: No Hx Hypothyroidism: No - HEMATOLOGICAL/ONCOLOGICAL Hx Anemia: No Hx Human Immunodeficiency Virus (HIV): No Hx Sickle Cell Disease: No - INTEGUMENTARY Hx Dermatological Problems: No - MUSCULOSKELETAL/RHEUMATOLOGICAL Hx Musculoskeletal Disorders: No Hx Falls: No Hx Fractures: No Hx Osteoporosis: No - GASTROINTESTINAL Hx Gastrointestinal Disorders: No Hx Crohn's Disease: No Hx Diverticulitis: No Hx Gall Bladder Disease: No Hx Pancreatitis: No - GENITOURINARY/GYNECOLOGICAL Hx Genitourinary Disorders: No Hx Sexually Transmitted Disorders: No - PSYCHIATRIC Hx Psychophysiologic Disorder: No Hx Bipolar Disorder: No Hx Depression: No Hx Paranoia: No Hx Post Traumatic Stress Disorder: No Hx Schizophrenia: No Hx Substance Use: No - SURGICAL HISTORY Hx Surgeries: Yes Hx Appendectomy: No Hx Cholecystectomy: No Hx Coronary Artery Bypass Graft: Yes Hx Coronary Stent: Yes Other/Comment: AICD 2016 - ANESTHESIA Hx Anesthesia: Yes Hx Anesthesia Reactions: No Hx Malignant Hyperthermia: No Meds Allergies/Adverse Reactions: Allergies Allergy/AdvReac Type Severity Reaction Status Date / Time benzalkonium chloride Allergy Verified 08/20/15 19:02 [From Merthiolate (benzalkonium)] contact metal agent Allergy Verified 08/20/15 19:02 seafood Allergy Uncoded 07/02/15 16:42 - Medications Medications: Current Medications Albuterol/Ipratropium (Duoneb 3 Mg/0.5 Mg (3 Ml) Ud) 3 ml INH RQ6 [facility] Last Admin: 04/11/17 13:06 Dose: 3 ml Allopurinol (Zyloprim) 100 mg PO DAILY [facility] Last Admin: 04/11/17 10:30 Dose: 100 mg Aspirin (Aspirin Chewable) 81 mg PO DAILY [facility] Last Admin: 04/11/17 10:30 Dose: 81 mg Benzocaine/Menthol (Cepacol Sore Throat) 1 kimberly MT Q2H PRN PRN Reason: Sore Throat Last Admin: 04/11/17 12:13 Dose: 1 kimberly Carvedilol (Coreg) 3.125 mg PO BID [facility] Last Admin: 04/11/17 10:29 Dose: 3.125 mg Clopidogrel Bisulfate (Plavix) 75 mg PO DAILY [facility] Last Admin: 04/11/17 10:30 Dose: 75 mg Famotidine (Pepcid) 20 mg PO DAILY [facility] Last Admin: 04/11/17 10:29 Dose: 20 mg Fluticasone Propionate (Flonase) 0 spr THERESA DAILY [facility] Last Admin: 04/11/17 10:31 Dose: 1 spr Heparin Sodium (Porcine) (Heparin) 5,000 units SC Q12 [facility] Last Admin: 04/11/17 10:31 Dose: 5,000 units Doxycycline Hyclate 100 mg/ (Sodium Chloride) 100 mls @ 100 mls/hr IVPB Q12H [facility] Stop: 04/17/17 10:01 Last Admin: 04/11/17 10:28 Dose: 100 mls/hr Methylprednisolone (Solu-Medrol) 40 mg IVP Q8 [facility] Last Admin: 04/11/17 14:51 Dose: 40 mg Promethazine HCl/Codeine (Phenergan/Codeine Oral Syrup) 5 ml PO Q4 PRN PRN Reason: Cough Last Admin: 04/11/17 12:13 Dose: 5 ml Rosuvastatin Calcium (Crestor) 5 mg PO HS [facility] Last Admin: 04/10/17 21:23 Dose: 5 mg Physical Exam - Constitutional Appears: Non-toxic, Chronically Ill - Head Exam Head Exam: ATRAUMATIC - Eye Exam Eye Exam: EOMI, Normal appearance Pupil Exam: NORMAL ACCOMODATION - ENT Exam ENT Exam: Mucous Membranes Moist - Neck Exam Neck exam: Positive for: Full Rom. Negative for: Lymphadenopathy - Respiratory Exam Respiratory Exam: Wheezes. absent: Chest Wall Tenderness - Cardiovascular Exam Cardiovascular Exam: REGULAR RHYTHM. absent: Rubs - GI/Abdominal Exam GI & Abdominal Exam: Distended, Soft. absent: Tenderness - Extremities Exam Extremities exam: Negative for: pedal edema - Neurological Exam Neurological exam: Alert, Oriented x3 - Psychiatric Exam Psychiatric exam: Normal Affect, Normal Mood Results - Vital Signs Recent Vital Signs: Last Vital Signs Temp 97.6 F 04/11/17 08:10 Pulse 82 04/11/17 12:10 Resp 20 04/11/17 08:10 BP 126/67 04/11/17 12:11 Pulse Ox 96 04/11/17 08:10 - Labs Result Diagrams: 04/11/17 07:40 04/11/17 07:40 Labs: Laboratory Results - last 24 hr 04/10/17 04/11/17 04/11/17 07:00 07:40 07:40 WBC 14.9 H D RBC 4.89 Hgb 14.9 Hct 43.5 MCV 88.9 MCH 30.4 MCHC 34.2 RDW 14.2 Plt Count 210 MPV 9.3 Neut % (Auto) 91.7 H Lymph % (Auto) 3.7 L Noble % (Auto) 4.5 Eos % (Auto) 0.0 Baso % (Auto) 0.1 Neut # 13.7 H Lymph # 0.5 L Noble # 0.7 Eos # 0.0 Baso # 0.0 Neutrophils % (Manual) 93 H Lymphocytes % (Manual) 2 L Monocytes % (Manual) 5 Platelet Estimate Normal RBC Morphology Normal Sodium 133 Potassium 3.7 Chloride 100 Carbon Dioxide 23 Anion Gap 14 BUN 59 H Creatinine 2.2 H Est GFR ( Amer) 37 Est GFR (Non-Af Amer) 30 Random Glucose 133 H Calcium 8.0 L Total Bilirubin 0.6 AST 47 ALT 29 Alkaline Phosphatase 58 Total Protein 7.3 Albumin 3.8 Globulin 3.6 Albumin/Globulin Ratio 1.1 Urine Color Urine Clarity Urine pH Ur Specific Grawn Urine Protein Urine Glucose (UA) Urine Ketones Urine Blood Urine Nitrate Urine Bilirubin Urine Urobilinogen Ur Leukocyte Esterase Urine WBC (Auto) Urine RBC (Auto) Ur Random Sodium Mycoplasma pneumon IgM Negative 04/11/17 04/11/17 13:49 13:49 WBC RBC Hgb Hct MCV MCH MCHC RDW Plt Count MPV Neut % (Auto) Lymph % (Auto) Noble % (Auto) Eos % (Auto) Baso % (Auto) Neut # Lymph # Noble # Eos # Baso # Neutrophils % (Manual) Lymphocytes % (Manual) Monocytes % (Manual) Platelet Estimate RBC Morphology Sodium Potassium Chloride Carbon Dioxide Anion Gap BUN Creatinine Est GFR ( Amer) Est GFR (Non-Af Amer) Random Glucose Calcium Total Bilirubin AST ALT Alkaline Phosphatase Total Protein Albumin Globulin Albumin/Globulin Ratio Urine Color Straw Urine Clarity Clear Urine pH 5.0 Ur Specific Grawn 1.012 Urine Protein Negative Urine Glucose (UA) Normal Urine Ketones Negative Urine Blood Negative Urine Nitrate Negative Urine Bilirubin Negative Urine Urobilinogen Normal Ur Leukocyte Esterase Neg Urine WBC (Auto) < 1 Urine RBC (Auto) < 1 Ur Random Sodium 37 Mycoplasma pneumon IgM Assessment & Plan - Assessment and Plan (Free Text) Assessment: GERARDO on CKD, underlying process likely cardiorenal syndrome pt presently admitted with sinusitis and reactive airway would hold lasix and losarten trend labs check urine analysis and urine na
[2017-04-12] MEDS: Benzocaine/Menthol (Cepacol) Lozenge MT PRN ×2 (00:07→21:31)
[2017-04-12] MEDS: Promethazine/Cod 6.25mg-10mg/5ml Syr UD PO PRN ×3 (00:07→09:31)
[2017-04-12] MEDS: Albuterol-Ipratrop 3 mg / 0.5 (3 ml) UD INH SCH ×4 (01:02→19:35)
[2017-04-12] MEDS: MethylPREDNISolone 40 mg Vial IVP SCH ×3 (06:14→23:46)
[2017-04-12 07:06] LABS: BASO % 0.1 % (0.0-2.0); HEMOGLOBIN 14.8 g/dL (12.0-18.0); LYMPH # 0.3 K/uL (1.0-4.3); LYMPH % 2.5 % (20.0-40.0); MEAN CELL VOLUME 89.9 fL (80.0-94.0); MEAN CORPUSCULAR HEMOGLOBIN 30.4 pg (27.0-31.0); MEAN CORPUSCULAR HGB CONC 33.8 g/dL (33.0-37.0); MEAN PLATELET VOLUME 9.2 fL (7.2-11.7); MONO # 0.3 K/uL (0.0-0.8); MONO % 2.6 % (0.0-10.0); NEUT # 12.6 K/uL (1.8-7.0); NEUT % 94.8 % (50.0-75.0); PLATELET COUNT 208 K/uL (130-400); RBC 4.86 Mil/uL (4.40-5.90); RED CELL DISTRIBUTION WIDTH 14.5 % (11.5-14.5); WHITE BLOOD COUNT 13.3 K/uL (4.8-10.8)
[2017-04-12 07:19] LABS: ALBUMIN 3.5 g/dL (3.5-5.0); CALCIUM 7.7 mg/dl (8.6-10.4)
[2017-04-12 08:41] LABS: BANDS 1 % (0-2); LYMPHOCYTE 3 % (20-40); MONOCYTE 2 % (0-10); NEUTROPHIL 94 % (50-75); PLATELET ESTIMATE NORMAL (NORMAL); TOTAL CELLS COUNTED 100
[2017-04-12] MEDS: Fluticasone Nasal 50 mcg/Spray NAS SCH (09:31)
--- NOTE | 2017-04-12 10:00 | CP.PCM.PN ---
"<SantikeithCris - Last Filed: 04/12/17 12:01> Subjective - Date & Time of Evaluation Date of Evaluation: 04/12/17 Time of Evaluation: 09:49 - Subjective Subjective: Patient has been seen and examined. Denies any fever and chills. His SOB is about the same as yesterday. He stated that the respiratory therapist told him to keep on his 02 to help with his heart/breathing although he doesn't notice the difference with or without the O2 nasal canula. He states that he still hears himself wheezing. He is still coughing but states that it is mildly improved from yesterday. He still states that he is not urinating as much as he feels he should. He denies any dysuria or hematuria. Objective - Vital Signs/Intake and Output Vital Signs (last 24 hours): Temp Pulse Resp BP Pulse Ox 97.5 F L 76 20 105/67 98 04/12/17 07:59 04/12/17 08:00 04/12/17 07:59 04/12/17 07:59 04/12/17 07:59 Intake and Output: 04/12/17 04/12/17 06:59 18:59 Intake Total 220 Output Total 850 Balance -630 - Medications Medications: Current Medications Albuterol/Ipratropium (Duoneb 3 Mg/0.5 Mg (3 Ml) Ud) 3 ml INH RQ6 [facility] Last Admin: 04/12/17 08:01 Dose: 3 ml Allopurinol (Zyloprim) 100 mg PO DAILY [facility] Last Admin: 04/12/17 09:31 Dose: 100 mg Aspirin (Aspirin Chewable) 81 mg PO DAILY [facility] Last Admin: 04/12/17 09:31 Dose: 81 mg Benzocaine/Menthol (Cepacol Sore Throat) 1 kimberly MT Q2H PRN PRN Reason: Sore Throat Last Admin: 04/12/17 00:07 Dose: 1 kimberly Carvedilol (Coreg) 3.125 mg PO BID [facility] Last Admin: 04/12/17 09:31 Dose: 3.125 mg Clopidogrel Bisulfate (Plavix) 75 mg PO DAILY [facility] Last Admin: 04/12/17 09:31 Dose: 75 mg Famotidine (Pepcid) 20 mg PO DAILY [facility] Last Admin: 04/12/17 09:31 Dose: 20 mg Fluticasone Propionate (Flonase) 0 spr THERESA DAILY [facility] Last Admin: 04/12/17 09:31 Dose: 1 spr Heparin Sodium (Porcine) (Heparin) 5,000 units SC Q12 [facility] Last Admin: 04/12/17 09:31 Dose: 5,000 units Doxycycline Hyclate 100 mg/ (Sodium Chloride) 100 mls @ 100 mls/hr IVPB Q12H [facility] Stop: 04/17/17 10:01 Last Admin: 04/12/17 09:30 Dose: 100 mls/hr Methylprednisolone (Solu-Medrol) 40 mg IVP Q8 [facility] Last Admin: 04/12/17 06:14 Dose: 40 mg Promethazine HCl/Codeine (Phenergan/Codeine Oral Syrup) 5 ml PO Q4 PRN PRN Reason: Cough Last Admin: 04/12/17 09:31 Dose: 5 ml Rosuvastatin Calcium (Crestor) 5 mg PO HS [facility] Last Admin: 04/11/17 21:49 Dose: 5 mg Tamsulosin HCl (Flomax) 0.4 mg PO DAILY [facility] Last Admin: 04/12/17 09:31 Dose: 0.4 mg - Labs Labs: 04/12/17 06:56 04/12/17 06:56 PT 13.6 SECONDS (9.7-12.2) H 04/09/17 15:48 INR 1.2 04/09/17 15:48 APTT 32 SECONDS (21-34) 04/09/17 15:48 - Constitutional Appears: Non-toxic, No Acute Distress - Head Exam Head Exam: ATRAUMATIC, NORMAL INSPECTION, NORMOCEPHALIC - Eye Exam Eye Exam: Normal appearance - ENT Exam ENT Exam: Mucous Membranes Moist - Respiratory Exam Respiratory Exam: Wheezes. absent: Clear to Ausculation Bilateral, Rhonchi - Cardiovascular Exam Cardiovascular Exam: RRR, +S1, +S2 - GI/Abdominal Exam GI & Abdominal Exam: Soft, Normal Bowel Sounds. absent: Tenderness - Extremities Exam Extremities Exam: Normal Capillary Refill. absent: Pedal Edema - Neurological Exam Neurological Exam: Alert, Awake, Oriented x3 - Psychiatric Exam Psychiatric exam: Normal Affect, Normal Mood - Skin Skin Exam: Dry, Intact, Normal Color, Warm Assessment and Plan - Assessment and Plan (Free Text) Assessment: 61 year old male with a PMHx of systolic CHF, CAD w/ hx of RI and 4 stents, and HLD admitted for evaluation and treatment of SOB w/ cough. Plan: Cough Likely 2/2 to Sinusitis vs. Possible Bronchitis Cough associated with shortness of breath Chest CT w/o contrast (04/09/17): No acute findings. Cholelithiasis, Cardiomegaly , mild djd of spine. F/U Facial CT w/o contrast (04/09/17): PanSinusitis, pending offical read. strep pneumoniae Ag - PENDING, legionella Ag - NEGATIVE, Mycoplasma IgM - PENDING Blood Culture - NEGATIVE x 48hrs | Urine Culture - NEGATIVE | Sputum Culture - Mod. Gram Postive Cocci in clusters few gram positive cocci in chains, Final Read PENDING Influenza swab NEGATIVE Repeat X-Ray Meds: DISCONTINUED Doxycycline for Sinusitis 100mg IVPB Q12H START - Zosyn 2.25grams (Renally Dosed) Q6H Duoneb 3ml INH RQ6H Solumedrol 40mg IVP Q8. Tapered to Q12H Flonase Promethazine/Codeine 5ml Q4H PRN Systolic CHF, chronic Cardiology consult, Dr Doan Hx of CABG; Hx of 4 stents; Prior Echo showed EF of 20-25% Pro-bnp 4930 on admission Repeat ECHO ordered on 04/09/17: PENDING READ Patient has ECHO from 12/21/16 that shows severe systolic dysfunction with an EF of 15-20% Con't home med Coreg 3.125mg PO BID Lasix 20mg PO BID (Held per Nephro) Con't home med Losartan 50mg PO QD (Held per Nephro) Hyperlipidemia Lipid panel from 11/2016 NORMAL Crestor 5mg PO HS (home med atorvastatin not carried here) Acute renal failure (Improving) Lasix (Held) per Nephro Losartan (Held) per Nephro No fluids due to CHF Hx. CAD (coronary artery disease) Hx of RI 2014; Hx of 4 stents Troponins NEGATIVE x 3 con't home med plavix 75mg PO QD Total CK downtrending Hx of gout Con't home med allopurinol 100mg PO QD Hx of BPH Flomax 0.4 PO Daily HTN (hypertension) BP well controlled con't home med coreg 3.125mg PO BID con't home med cozaar 50mg PO QD Prophylactic measure SCDs; con't home med plavix 75mg PO QD Protonix 40mg PO QD Heart healthy diet Dispo: Called [facility] at to interrogate the AICD. AICD is okay. Renal function is improving. Wheezing hasn't improved much. Likely will go home tomorrow. Patient seen and discussed with Attending Cris Archuleta. <Eve Nogueira V - Last Filed: 04/12/17 17:06> Objective - Vital Signs/Intake and Output Vital Signs (last 24 hours): Temp Pulse Resp BP Pulse Ox 97.9 F 75 20 134/84 97 04/12/17 15:00 04/12/17 15:00 04/12/17 15:00 04/12/17 15:00 04/12/17 15:00 Intake and Output: 04/12/17 04/12/17 06:59 18:59 Intake Total 220 Output Total 850 600 Balance -630 -600 - Medications Medications: Current Medications Albuterol/Ipratropium (Duoneb 3 Mg/0.5 Mg (3 Ml) Ud) 3 ml INH RQ6 [facility] Last Admin: 04/12/17 14:13 Dose: 3 ml Allopurinol (Zyloprim) 100 mg PO DAILY [facility] Last Admin: 04/12/17 09:31 Dose: 100 mg Aspirin (Aspirin Chewable) 81 mg PO DAILY [facility] Last Admin: 04/12/17 09:31 Dose: 81 mg Benzocaine/Menthol (Cepacol Sore Throat) 1 kimberly MT Q2H PRN PRN Reason: Sore Throat Last Admin: 04/12/17 00:07 Dose: 1 kimberly Carvedilol (Coreg) 3.125 mg PO BID [facility] Last Admin: 04/12/17 09:31 Dose: 3.125 mg Clopidogrel Bisulfate (Plavix) 75 mg PO DAILY [facility] Last Admin: 04/12/17 09:31 Dose: 75 mg Famotidine (Pepcid) 20 mg PO DAILY [facility] Last Admin: 04/12/17 09:31 Dose: 20 mg Fluticasone Propionate (Flonase) 0 spr THERESA DAILY [facility] Last Admin: 04/12/17 09:31 Dose: 1 spr Heparin Sodium (Porcine) (Heparin) 5,000 units SC Q12 [facility] Last Admin: 04/12/17 09:31 Dose: 5,000 units Piperacillin Sod/Tazobactam Sod (Zosyn 2.25 Gm Iv Premix) 2.25 gm in 50 mls @ 200 mls/hr IVPB Q6H [facility] Last Admin: 04/12/17 12:32 Dose: 200 mls/hr Methylprednisolone (Solu-Medrol) 40 mg IVP Q12H [facility] Last Admin: 04/12/17 12:33 Dose: 40 mg Promethazine HCl/Codeine (Phenergan/Codeine Oral Syrup) 5 ml PO Q4 PRN PRN Reason: Cough Last Admin: 04/12/17 09:31 Dose: 5 ml Rosuvastatin Calcium (Crestor) 5 mg PO HS [facility] Last Admin: 04/11/17 21:49 Dose: 5 mg Tamsulosin HCl (Flomax) 0.4 mg PO DAILY [facility] Last Admin: 04/12/17 09:31 Dose: 0.4 mg - Labs Labs: 04/12/17 06:56 04/12/17 06:56 PT 13.6 SECONDS (9.7-12.2) H 04/09/17 15:48 INR 1.2 04/09/17 15:48 APTT 32 SECONDS (21-34) 04/09/17 15:48 Attending/Attestation - Attestation I have personally seen and examined this patient.: Yes I have fully participated in the care of the patient.: Yes I have reviewed all pertinent clinical information, including history, physical exam and plan: Yes Notes (Text): Patient seen, examined and case discussed with medical scientific liaison. Patient continues to have cough but has been using cough syrup as needed. Patient's nasal congestion has improved. Consult ENT for further recommendations. Patient appreciated recommendations. Steroids tapered. Chest x- ray was repeated with mild wheezing on exam but is clear. Patient's creatinine improved to 1.7. Patient antibiotic switch from doxycycline to Zosyn for better coverage. Patient is for discharge tomorrow with by mouth antibiotic, supportive therapy for her nasal congestion and cough and recommended to follow-up at the clinic. Assessment/Plan 1) Acute Sinusitis Cough * ENT: Dr Freedman on consult-->help appreciated * Orbit/Facial (04/10/17): mancini sinusitis. evidence of acute left maxillary sinusitis. No acute osseous abnormalities. No abnormalities with respect to the globe or retroconal structures. * CT Chest (04/10/17): no acute findings appreciated. Cholelithiasis. Cardiomegaly. * Urine culture (04/09/17): no growth. * Blood culture (): no growth after 48hours X2 * Sputum (04/11/17): normal oral estiven * strep pneumoniae Ag - PENDING, legionella Ag - NEGATIVE, Mycoplasma IgM - negative * Influenza swab NEGATIVE * Meds: * Switch to Zosyn 2.25 IV q8H for better coverage, patient to be discharged tomorrow on PO antibiotic * Duoneb 3ml INH RQ6H * Flonase for nasal cogestion * Promethazine w codeine 5ml PO Q4H PRN cough (2) Systolic CHF, chronic * Cardiology consult, Dr Doan * Aspirin 81mg PO daily * Plavix 75mg PO daily * Hx of CABG; Hx of 4 stents; Prior Echo showed EF of 20-25% * Pro-bnp 4930 on admission * Repeat ECHO ordered yesterday-->official report pending * Patient has ECHO from 12/21/16 that shows severe systolic dysfunction with an EF of 15-20% * Con't home med Coreg 3.125mg PO BID * d/c Lasix 20mg IVP BID--Patient feels dehydrated and rise in Cr. * d/c home med Losartan 50mg PO QD (3) Hyperlipidemia * Lipid panel from 11/2016 NORMAL * Crestor 5mg PO HS (home med atorvastatin not carried here) (4) Acute on Chronic renal failure * Creatinine improved * Diuretic and ARB held by nephrology * Patient making normal urinary output * Patient sees Dr. Fox's group as outpatient (5) CAD (coronary artery disease) * Hx of RI 2014; Hx of 4 stents * Troponins NEGATIVE x 3 * Aspirin 81mg Po daily * con't home med plavix 75mg PO QD * Total CK downtrending (6) Hx of gout * Con't home med allopurinol 100mg PO QD (7) HTN (hypertension) * BP well controlled * con't home med coreg 3.125mg PO BID * held home med cozaar 50mg PO QD given rise in Creatinine (8) Prophylactic measure Assessment and Plan: * SCDs; con't home med plavix 75mg PO QD * Protonix 40mg PO QD * Heart healthy diet * heparin 5000 units [id number] Disposition: For discharge tomorrow given extreme winter conditions and in light of patient fighting off acute sinusitis with associated cough. Patient we discharge him by mouth antibiotic cough suppressant and aunt and when necessary for nasal congestion. Patient recommended follow-up in the [facility] upon discharge"
[2017-04-12] MEDS ORDERED: Piperacill/Tazo 2.25gm in Dex 2.25 GM/50 ML BAG IVPB SCH (12:00)
--- NOTE | 2017-04-12 12:41 | RAD ---
HISTORY: Wheezing COMPARISON: 04/09/2017 TECHNIQUE: Chest PA and lateral FINDINGS: LUNGS: No consolidation PLEURA: No significant pleural effusion identified. No pneumothorax apparent. Trace left inferolateral pleural thickening -similar CARDIOVASCULAR: Moderate cardiomegaly. Coronary artery bypass surgery Position/ configuration of pacemaker Central pulmonary vasculature - top-normal OSSEOUS STRUCTURES: Midline sternotomy VISUALIZED UPPER ABDOMEN: Normal. OTHER FINDINGS: None. IMPRESSION: No interval cardiopulmonary pathology
--- NOTE | 2017-04-12 13:46 | CON ---
DATE: 04/12/2017 REASON FOR CONSULTATION: Sinusitis. REQUESTING PHYSICIAN: HISTORY OF PRESENT ILLNESS: This is a 61-year-old male who has been having nasal discharge for one week, constant, moderate in intensity. There is no congestion, no headache. PAST MEDICAL HISTORY: As noted in the chart by me. MEDICATIONS: As noted in the chart by me. ALLERGIES: NO KNOWN DRUG ALLERGIES. PHYSICAL EXAMINATION: HEAD: Atraumatic, normocephalic. FACE: Good facial movements bilaterally. CONSTITUTIONAL: Well fed, well nourished. COMMUNICATION: Communicates well and appropriately. EXTERNAL NOSE AND EARS: No masses. No lesions. No erythema. No edema. INTERNAL NOSE: Deviated septum, enlarged turbinates. Possible erythema and edema of the mucosa. ORAL CAVITY AND OROPHARYNX: No masses. No lesions. No erythema. No edema. LIPS AND GUMS: No masses. No lesions. No erythema. No edema. NECK: Supple. THYROID: No thyromegaly. No goiter. LYMPH NODES: No lymphadenopathy of the neck. ASSESSMENT: 1. Sinusitis. 2. Deviated septum. 3. Enlarged turbinates. PLAN: The patient to continue antibiotics. Follow up as an outpatient. Isma Freedman MD
[2017-04-12] MEDS: Saccharomyces Boulardi 250 mg Cap PO SCH (17:31)
[2017-04-12] MEDS: Piperacill/Tazo 2.25gm in Dex 2.25 GM/50 ML BAG IVPB SCH (19:35)
[2017-04-12 23:24] VITALS: RESP 20
[2017-04-13] MEDS: Promethazine/Cod 6.25mg-10mg/5ml Syr UD PO PRN (00:34)
[2017-04-13] MEDS: Benzocaine/Menthol (Cepacol) Lozenge MT PRN (00:34)
[2017-04-13] MEDS: Albuterol-Ipratrop 3 mg / 0.5 (3 ml) UD INH SCH ×3 (01:17→13:23)
[2017-04-13] MEDS: Piperacill/Tazo 2.25gm in Dex 2.25 GM/50 ML BAG IVPB SCH ×2 (04:09→14:57)
[2017-04-13 07:23] LABS: BASO % 0.1 % (0.0-2.0); HEMOGLOBIN 14.9 g/dL (12.0-18.0); LYMPH # 0.5 K/uL (1.0-4.3); LYMPH % 3.2 % (20.0-40.0); MEAN CELL VOLUME 89.4 fL (80.0-94.0); MEAN CORPUSCULAR HEMOGLOBIN 30.9 pg (27.0-31.0); MEAN CORPUSCULAR HGB CONC 34.5 g/dL (33.0-37.0); MEAN PLATELET VOLUME 9.1 fL (7.2-11.7); MONO # 0.4 K/uL (0.0-0.8); MONO % 2.5 % (0.0-10.0); NEUT % 94.2 % (50.0-75.0); PLATELET COUNT 207 K/uL (130-400); RBC 4.84 Mil/uL (4.40-5.90); RED CELL DISTRIBUTION WIDTH 14.7 % (11.5-14.5); WHITE BLOOD COUNT 14.9 K/uL (4.8-10.8)
[2017-04-13 08:34] LABS: ALBUMIN 3.5 g/dL (3.5-5.0)
[2017-04-13 08:35] VITALS: TEMP 98.2; O2SAT 95
[2017-04-13 09:10] LABS: BANDS 2 % (0-2); LYMPHOCYTE 4 % (20-40); MONOCYTE 2 % (0-10); NEUTROPHIL 92 % (50-75); TOTAL CELLS COUNTED 100
[2017-04-13 09:11] LABS: OVALOCYTES SLIGHT; PLATELET ESTIMATE NORMAL (NORMAL); POIKILOCYTOSIS SLIGHT
[2017-04-13] MEDS: Fluticasone Nasal 50 mcg/Spray NAS SCH (09:36)
[2017-04-13] MEDS: Saccharomyces Boulardi 250 mg Cap PO SCH (09:37)
--- NOTE | 2017-04-13 09:54 | PCM.HF ---
Heart Failure Core Measure - Heart Failure Ejection Fraction: Less Than 40 % Left Ventricular Function to be assessed after discharge: Yes RICHY Inhibitor Prescribed: No Contraindication/Reason for not providing: giving arb Beta-Shankar Prescribed: Carvedilol Angiotensin II Receptor Shankar Prescribed: Yes AnticoagulationTherapy for Atrial Fibrillation/Atrialflutter: No Contraindication/Reason for not providing: not clnically indicated Aldosterone Antagonist Prescribed: No Contraindication/Reason for not providing: not clnically indicated Hydralazine Nitrate Prescribed: No Contraindication/Reason for not providing: not clnically indicated Implantable Cardioverter Defibrillator Therapy: Yes Cardiac Resynchronization Therapy Prescribed: No Contraindication/Reason for not providing: will need followup with cardiology - Follow up Will be discharged to: Home Follow Up Date (must be within 7 days from discharge): 04/20/17 Follow Up Time: 09:00
--- NOTE | 2017-04-13 12:41 | CP.PCM.DIS ---
<Cris Archuleta - Last Filed: 04/13/17 21:12> Provider - Provider Date of Admission: 04/09/17 17:14 Attending physician: Eve Nogueira DO Time Spent in preparation of Discharge (in minutes): 45 Hospital Course - Lab Results Lab Results: Micro Results 04/11/17 03:09 Sputum Gram Stain - Final 04/11/17 03:09 Sputum Sputum Culture - Preliminary Yeast Species 04/09/17 Unknown Blood Blood Culture - Preliminary NO GROWTH AFTER 3 DAYS 04/09/17 Unknown Blood Blood Culture - Preliminary NO GROWTH AFTER 3 DAYS 04/09/17 21:30 Urine,Clean Catch Urine Culture - Final No Growth (<1,000 CFU/ML) 04/09/17 21:30 Sputum Gram Stain - Final 04/09/17 21:30 Sputum Sputum Culture - Final Most Recent Lab Values WBC 14.9 K/uL (4.8-10.8) H 04/13/17 07:16 RBC 4.84 Mil/uL (4.40-5.90) 04/13/17 07:16 Hgb 14.9 g/dL (12.0-18.0) 04/13/17 07:16 Hct 43.3 % (35.0-51.0) 04/13/17 07:16 MCV 89.4 fL (80.0-94.0) 04/13/17 07:16 MCH 30.9 pg (27.0-31.0) 04/13/17 07:16 MCHC 34.5 g/dL (33.0-37.0) 04/13/17 07:16 RDW 14.7 % (11.5-14.5) H 04/13/17 07:16 Plt Count 207 K/uL (130-400) 04/13/17 07:16 MPV 9.1 fL (7.2-11.7) 04/13/17 07:16 Neut % (Auto) 94.2 % (50.0-75.0) H 04/13/17 07:16 Lymph % (Auto) 3.2 % (20.0-40.0) L 04/13/17 07:16 Sherman % (Auto) 2.5 % (0.0-10.0) 04/13/17 07:16 Eos % (Auto) 0.0 % (0.0-4.0) 04/13/17 07:16 Baso % (Auto) 0.1 % (0.0-2.0) 04/13/17 07:16 Neut # 14.0 K/uL (1.8-7.0) H 04/13/17 07:16 Lymph # 0.5 K/uL (1.0-4.3) L 04/13/17 07:16 Sherman # 0.4 K/uL (0.0-0.8) 04/13/17 07:16 Eos # 0.0 K/uL (0.0-0.7) 04/13/17 07:16 Baso # 0.0 K/uL (0.0-0.2) 04/13/17 07:16 Neutrophils % (Manual) 92 % (50-75) H 04/13/17 07:16 Band Neutrophils % 2 % (0-2) 04/13/17 07:16 Lymphocytes % (Manual) 4 % (20-40) L 04/13/17 07:16 Monocytes % (Manual) 2 % (0-10) 04/13/17 07:16 Eosinophils % (Manual) 5 % (0-4) H 04/09/17 15:48 Platelet Estimate Normal (NORMAL) 04/13/17 07:16 Large Platelets Present 04/09/17 15:48 RBC Morphology Normal 04/11/17 07:40 Poikilocytosis (manual Slight 04/13/17 07:16 Microcytosis (manual) Slight 04/09/17 15:48 Ovalocytes Slight 04/13/17 07:16 PT 13.6 SECONDS (9.7-12.2) H 04/09/17 15:48 INR 1.2 04/09/17 15:48 APTT 32 SECONDS (21-34) 04/09/17 15:48 Sodium 135 mmol/L (132-148) 04/13/17 07:16 Potassium 3.9 mmol/L (3.6-5.2) 04/13/17 07:16 Chloride 103 mmol/L (98-107) 04/13/17 07:16 Carbon Dioxide 22 mmol/L (22-30) 04/13/17 07:16 Anion Gap 14 (10-20) 04/13/17 07:16 BUN 39 mg/dL (9-20) H 04/13/17 07:16 Creatinine 1.6 mg/dL (0.8-1.5) H 04/13/17 07:16 Est GFR ( Amer) 53 04/13/17 07:16 Est GFR (Non-Af Amer) 44 04/13/17 07:16 POC Glucose (mg/dL) 67 mg/dL (65-110) 04/09/17 16:03 Random Glucose 148 mg/dL (75-110) H 04/13/17 07:16 Calcium 8.0 mg/dl (8.6-10.4) L 04/13/17 07:16 Phosphorus 4.2 mg/dL (2.5-4.5) 04/10/17 03:22 Magnesium 2.1 mg/dL (1.6-2.3) 04/10/17 03:22 Total Bilirubin 0.5 mg/dL (0.2-1.3) 04/13/17 07:16 AST 29 U/L (17-59) 04/13/17 07:16 ALT 26 U/L (21-72) 04/13/17 07:16 Alkaline Phosphatase 52 U/L (38-126) 04/13/17 07:16 Total Creatine Kinase 806 U/L (55-170) H 04/10/17 03:22 CK-MB (Mass) 4.28 ng/mL (0.0-3.38) H 04/10/17 03:22 Troponin I 0.0760 ng/mL (0.00-0.120) 04/10/17 03:22 NT-Pro-B Natriuret Pep 4930 pg/mL (0-900) H 04/09/17 15:48 Total Protein 6.8 g/dL (6.3-8.3) 04/13/17 07:16 Albumin 3.5 g/dL (3.5-5.0) 04/13/17 07:16 Globulin 3.3 gm/dL (2.2-3.9) 04/13/17 07:16 Albumin/Globulin Ratio 1.0 (1.0-2.1) 04/13/17 07:16 Procalcitonin 0.07 NG/ML (0.19-0.49) L 04/09/17 21:13 Urine Color Straw (YELLOW) 04/11/17 13:49 Urine Clarity Clear (Clear) 04/11/17 13:49 Urine pH 5.0 (5.0-8.0) 04/11/17 13:49 Ur Specific [place] 1.012 (1.003-1.030) 04/11/17 13:49 Urine Protein Negative mg/dL (NEGATIVE) 04/11/17 13:49 Urine Glucose (UA) Normal mg/dL (Normal) 04/11/17 13:49 Urine Ketones Negative mg/dL (NEGATIVE) 04/11/17 13:49 Urine Blood Negative (NEGATIVE) 04/11/17 13:49 Urine Nitrate Negative (NEGATIVE) 04/11/17 13:49 Urine Bilirubin Negative (NEGATIVE) 04/11/17 13:49 Urine Urobilinogen Normal mg/dL (0.2-1.0) 04/11/17 13:49 Ur Leukocyte Esterase Neg Dixon/uL (Negative) 04/11/17 13:49 Urine WBC (Auto) < 1 /hpf (0-5) 04/11/17 13:49 Urine RBC (Auto) < 1 /hpf (0-3) 04/11/17 13:49 Ur Random Sodium 37 mmol/L 04/11/17 13:49 Influenza Typ A,B (EIA) Negative for flu a/b (NEGATIVE) 04/09/17 17:00 Ur L.pneumophila Ag Negative (NEGATIVE) 04/09/17 11:56 Mycoplasma pneumon IgM Negative (NEGATIVE) 04/10/17 07:00 Discharge Exam - Head Exam Head Exam: ATRAUMATIC, NORMAL INSPECTION, NORMOCEPHALIC - Additional Findings Additional findings: - Constitutional Appears: Non-toxic, No Acute Distress - Head Exam Head Exam: ATRAUMATIC, NORMAL INSPECTION, NORMOCEPHALIC - Eye Exam Eye Exam: Normal appearance - ENT Exam ENT Exam: Mucous Membranes Moist - Respiratory Exam Respiratory Exam: Clear to Ausculation Bilateral. Absent: Wheezing, Rhonchi, Rales - Cardiovascular Exam Cardiovascular Exam: RRR, +S1, +S2 - GI/Abdominal Exam GI & Abdominal Exam: Soft, Normal Bowel Sounds. absent: Tenderness - Extremities Exam Extremities Exam: Normal Capillary Refill. absent: Pedal Edema - Neurological Exam Neurological Exam: Alert, Awake, Oriented x3 - Psychiatric Exam Psychiatric exam: Normal Affect, Normal Mood - Skin Skin Exam: Dry, Intact, Normal Color, Warm Discharge Plan - Discharge Medications Prescriptions: Amoxicillin/Clavulanate [Augmentin 875 MG-125 MG] 1 tab PO BID #12 tab Carvedilol [Coreg] 3.125 mg PO BID #60 tab Clopidogrel [Plavix] 75 mg PO DAILY #30 tab Fluticasone Propionate [Flonase] 1 spray THERESA BID #1 bottle Furosemide [Lasix] 20 mg PO DAILY #30 tab Losartan [Cozaar] 50 mg PO DAILY #30 tab Methylprednisolone [Medrol Dose Pack (21 tabs)] 1 mg PO DAILY #21 mg Promethazine/Codeine [Phenergan/Codeine Oral Syrup] 5 ml PO Q4 PRN #120 udc PRN Reason: Cough Rosuvastatin Calcium [Crestor] 5 mg PO HS #30 tab Tamsulosin [Flomax] 0.4 mg PO DAILY #30 cap - Follow Up Plan Condition: GOOD Disposition: HOME/ ROUTINE Instructions: Furosemide (By mouth), Amoxicillin/Clavulanate Potassium (By mouth), Methylprednisolone (By mouth), Tamsulosin (By mouth), Carvedilol (By mouth), Clopidogrel (By mouth), Promethazine/Codeine (By mouth), Rosuvastatin ( By mouth), Fluticasone (Into the nose), Heart Failure (DC), Heart Failure (GEN) , Pacemaker (DC), Pacemaker (GEN), Pulmonary Edema (DC), Pulmonary Edema (GEN), Acute Kidney Injury (DC), Renal Failure Diet (DC), Ascites (DC), Ascites (GEN), Hypertension (DC), Hypertension (GEN) Additional Instructions: Please keep your Nephrology appointment in June Please keep your Cardiology appointment on the of this month. Please follow up with our clinic within 1 month for medication refills. Referrals: [facility] [Outside] Juan R Fox MD [Staff Provider] - Hill Sparks MD [Medical Doctor] - <Eve Nogueira V - Last Filed: 04/14/17 07:17> Provider - Provider Date of Admission: 04/09/17 17:14 Attending physician: Eve Nogueira DO Hospital Course - Lab Results Lab Results: Micro Results 04/11/17 03:09 Sputum Gram Stain - Final 04/11/17 03:09 Sputum Sputum Culture - Preliminary Yeast Species 04/09/17 Unknown Blood Blood Culture - Preliminary NO GROWTH AFTER 3 DAYS 04/09/17 Unknown Blood Blood Culture - Preliminary NO GROWTH AFTER 3 DAYS 04/09/17 21:30 Urine,Clean Catch Urine Culture - Final No Growth (<1,000 CFU/ML) 04/09/17 21:30 Sputum Gram Stain - Final 04/09/17 21:30 Sputum Sputum Culture - Final Most Recent Lab Values WBC 14.9 K/uL (4.8-10.8) H 04/13/17 07:16 RBC 4.84 Mil/uL (4.40-5.90) 04/13/17 07:16 Hgb 14.9 g/dL (12.0-18.0) 04/13/17 07:16 Hct 43.3 % (35.0-51.0) 04/13/17 07:16 MCV 89.4 fL (80.0-94.0) 04/13/17 07:16 MCH 30.9 pg (27.0-31.0) 04/13/17 07:16 MCHC 34.5 g/dL (33.0-37.0) 04/13/17 07:16 RDW 14.7 % (11.5-14.5) H 04/13/17 07:16 Plt Count 207 K/uL (130-400) 04/13/17 07:16 MPV 9.1 fL (7.2-11.7) 04/13/17 07:16 Neut % (Auto) 94.2 % (50.0-75.0) H 04/13/17 07:16 Lymph % (Auto) 3.2 % (20.0-40.0) L 04/13/17 07:16 Sherman % (Auto) 2.5 % (0.0-10.0) 04/13/17 07:16 Eos % (Auto) 0.0 % (0.0-4.0) 04/13/17 07:16 Baso % (Auto) 0.1 % (0.0-2.0) 04/13/17 07:16 Neut # 14.0 K/uL (1.8-7.0) H 04/13/17 07:16 Lymph # 0.5 K/uL (1.0-4.3) L 04/13/17 07:16 Sherman # 0.4 K/uL (0.0-0.8) 04/13/17 07:16 Eos # 0.0 K/uL (0.0-0.7) 04/13/17 07:16 Baso # 0.0 K/uL (0.0-0.2) 04/13/17 07:16 Neutrophils % (Manual) 92 % (50-75) H 04/13/17 07:16 Band Neutrophils % 2 % (0-2) 04/13/17 07:16 Lymphocytes % (Manual) 4 % (20-40) L 04/13/17 07:16 Monocytes % (Manual) 2 % (0-10) 04/13/17 07:16 Eosinophils % (Manual) 5 % (0-4) H 04/09/17 15:48 Platelet Estimate Normal (NORMAL) 04/13/17 07:16 Large Platelets Present 04/09/17 15:48 RBC Morphology Normal 04/11/17 07:40 Poikilocytosis (manual Slight 04/13/17 07:16 Microcytosis (manual) Slight 04/09/17 15:48 Ovalocytes Slight 04/13/17 07:16 PT 13.6 SECONDS (9.7-12.2) H 04/09/17 15:48 INR 1.2 04/09/17 15:48 APTT 32 SECONDS (21-34) 04/09/17 15:48 Sodium 135 mmol/L (132-148) 04/13/17 07:16 Potassium 3.9 mmol/L (3.6-5.2) 04/13/17 07:16 Chloride 103 mmol/L (98-107) 04/13/17 07:16 Carbon Dioxide 22 mmol/L (22-30) 04/13/17 07:16 Anion Gap 14 (10-20) 04/13/17 07:16 BUN 39 mg/dL (9-20) H 04/13/17 07:16 Creatinine 1.6 mg/dL (0.8-1.5) H 04/13/17 07:16 Est GFR ( Amer) 53 04/13/17 07:16 Est GFR (Non-Af Amer) 44 04/13/17 07:16 POC Glucose (mg/dL) 67 mg/dL (65-110) 04/09/17 16:03 Random Glucose 148 mg/dL (75-110) H 04/13/17 07:16 Calcium 8.0 mg/dl (8.6-10.4) L 04/13/17 07:16 Phosphorus 4.2 mg/dL (2.5-4.5) 04/10/17 03:22 Magnesium 2.1 mg/dL (1.6-2.3) 04/10/17 03:22 Total Bilirubin 0.5 mg/dL (0.2-1.3) 04/13/17 07:16 AST 29 U/L (17-59) 04/13/17 07:16 ALT 26 U/L (21-72) 04/13/17 07:16 Alkaline Phosphatase 52 U/L (38-126) 04/13/17 07:16 Total Creatine Kinase 806 U/L (55-170) H 04/10/17 03:22 CK-MB (Mass) 4.28 ng/mL (0.0-3.38) H 04/10/17 03:22 Troponin I 0.0760 ng/mL (0.00-0.120) 04/10/17 03:22 NT-Pro-B Natriuret Pep 4930 pg/mL (0-900) H 04/09/17 15:48 Total Protein 6.8 g/dL (6.3-8.3) 04/13/17 07:16 Albumin 3.5 g/dL (3.5-5.0) 04/13/17 07:16 Globulin 3.3 gm/dL (2.2-3.9) 04/13/17 07:16 Albumin/Globulin Ratio 1.0 (1.0-2.1) 04/13/17 07:16 Procalcitonin 0.07 NG/ML (0.19-0.49) L 04/09/17 21:13 Urine Color Straw (YELLOW) 04/11/17 13:49 Urine Clarity Clear (Clear) 04/11/17 13:49 Urine pH 5.0 (5.0-8.0) 04/11/17 13:49 Ur Specific [place] 1.012 (1.003-1.030) 04/11/17 13:49 Urine Protein Negative mg/dL (NEGATIVE) 04/11/17 13:49 Urine Glucose (UA) Normal mg/dL (Normal) 04/11/17 13:49 Urine Ketones Negative mg/dL (NEGATIVE) 04/11/17 13:49 Urine Blood Negative (NEGATIVE) 04/11/17 13:49 Urine Nitrate Negative (NEGATIVE) 04/11/17 13:49 Urine Bilirubin Negative (NEGATIVE) 04/11/17 13:49 Urine Urobilinogen Normal mg/dL (0.2-1.0) 04/11/17 13:49 Ur Leukocyte Esterase Neg Dixon/uL (Negative) 04/11/17 13:49 Urine WBC (Auto) < 1 /hpf (0-5) 04/11/17 13:49 Urine RBC (Auto) < 1 /hpf (0-3) 04/11/17 13:49 Ur Random Sodium 37 mmol/L 04/11/17 13:49 Influenza Typ A,B (EIA) Negative for flu a/b (NEGATIVE) 04/09/17 17:00 Ur L.pneumophila Ag Negative (NEGATIVE) 04/09/17 11:56 Mycoplasma pneumon IgM Negative (NEGATIVE) 04/10/17 07:00 Clinical Quality Measures - CQM - Heart Failure Ejection Fraction: Less Than 40 % Left Ventricular Function to be assessed after discharge: Yes RICHY Inhibitor Prescribed: No Contraindication/Reason for not providing: on ARB Beta-Shankar Prescribed: Carvedilol Angiotensin II Receptor Shankar Prescribed: Yes AnticoagulationTherapy for Atrial Fibrillation/Atrialflutter: No Contraindication/Reason for not providing: not clinically indicated Aldosterone Antagonist Prescribed: No Contraindication/Reason for not providing: not clinically indicated Hydralazine Nitrate Prescribed: No Contraindication/Reason for not providing: not clinically indicated Implantable Cardioverter Defibrillator Therapy: Yes Cardiac Resynchronization Therapy Prescribed: No Contraindication/Reason for not providing: not clinically indicated Will be discharged to: Home Follow Up Date (must be within 7 days from discharge): 04/20/17 Follow Up Time: 09:00 Attending/Attestation - Attestation I have personally seen and examined this patient.: Yes I have fully participated in the care of the patient.: Yes I have reviewed all pertinent clinical information, including history, physical exam and plan: Yes Notes (Text): Patient seen, examined, case discussed with medical lab scientist. Patient is feeling better. Patient's cough has improved. Lung sounds are clear. Nasal congestion has resolved. Patient is medically stable for discharge. Patient is recommended to follow-up with cardiology for further follow-up for congestive heart failure. Patient already has a scheduled appointment with cardiology at [place] for later this month. I have provided patient with education regards congestive heart failure including fluid restriction and minimizes salt engaging in a heart healthy diet. Patient is recommended to follow[facility] for refills of medications. Patient constitution party has follow-up with nephrology in June given acute on chronic renal failure. Patient discharge on the following medications: 1) aspirin 81 mg once a day daily 2) Plavix 75 mg by mouth once a day daily 3) Cozaar 50 mg by mouth once a day daily 4) Lasix 20 mg by mouth by mouth once a day 5) Crestor 5 mg by mouth at night 6) Medrol Dosepak to be used as directed. Pocket insert 7) Augmentin 875-125 mg 1 pill twice a day 12 tabs 8) fluticasone propionate nasal spray 9) Promethazine with codeine 5 mL by mouth up to 4 times a day as needed for cough. Heart failure core measures completed This is a summary of patient's hospitalization. Please refer to EMR for full record. Assessment/Plan 1) Acute Sinusitis- Stable Cough- Stable * ENT: Dr Freedman on consult-->help appreciated * Orbit/Facial (04/10/17): mancini sinusitis. evidence of acute left maxillary sinusitis. No acute osseous abnormalities. No abnormalities with respect to the globe or retroconal structures. * CT Chest (04/10/17): no acute findings appreciated. Cholelithiasis. Cardiomegaly. * Urine culture (04/09/17): no growth. * Blood culture (): no growth 3 days X2 * Sputum (04/11/17): normal oral estiven * strep pneumoniae Ag - PENDING, legionella Ag - NEGATIVE, Mycoplasma IgM - negative * Influenza swab NEGATIVE * Upon discharge, * Augmentin 875-125 mg 1 pill twice a day 12 tabs/0 refills to finish 7 day course * Fluticasone propionate nasal spray 1 spray inhaled Q12H * Promethazine with codeine 5 mL by mouth up to 4 times a day as needed for cough. 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 * Patient has ECHO from 12/21/16 that shows severe systolic dysfunction with an EF of 15-20% * Con't home med Coreg 3.125mg PO BID * Upon discharge, * 1) Aspirin 81 mg once a day daily * 2) Plavix 75 mg by mouth once a day daily * 3) Cozaar 50 mg by mouth once a day daily * 4) Lasix 20 mg by mouth by mouth once a day * 5) Crestor 5 mg by mouth at night (3) Hyperlipidemia * Lipid panel from 11/2016 NORMAL * Crestor 5mg PO HS (home med atorvastatin not carried here) * Upon discharge, * Crestor 5 mg by mouth at night (4) Acute on Chronic renal failure * Creatinine improved * Upon discharge, * 4) Lasix 20 mg by mouth by mouth once a day * 3) Cozaar 50 mg by mouth once a day daily (5) CAD (coronary artery disease) * Hx of SC 2014; Hx of 4 stents * Troponins NEGATIVE x 3 * Aspirin 81mg Po daily * con't home med plavix 75mg PO QD * Total CK downtrending (6) Hx of gout * Con't home med allopurinol 100mg PO QD (7) HTN (hypertension) * BP well controlled * con't home med coreg 3.125mg PO BID * held home med cozaar 50mg PO QD given rise in Creatinine (8) Prophylactic measure Assessment and Plan: * SCDs; con't home med plavix 75mg PO QD * Protonix 40mg PO QD * Heart healthy diet * heparin 5000 units [id number]
--- NOTE | 2017-04-13 13:17 | CP.PCM.PN ---
Subjective - Date & Time of Evaluation Date of Evaluation: 04/13/17 Time of Evaluation: 13:14 - Subjective Subjective: Still with dry cough, still with JUAREZ No nausea, vomiting, HAs Objective - Vital Signs/Intake and Output Vital Signs (last 24 hours): Temp Pulse Resp BP Pulse Ox 98.2 F 79 20 126/66 95 04/13/17 08:33 04/13/17 08:33 04/13/17 08:33 04/13/17 08:33 04/13/17 08:33 Intake and Output: 04/13/17 04/13/17 06:59 18:59 Intake Total 100 Output Total 400 Balance -300 - Medications Medications: Current Medications Albuterol/Ipratropium (Duoneb 3 Mg/0.5 Mg (3 Ml) Ud) 3 ml INH RQ6 [facility] Last Admin: 04/13/17 07:37 Dose: 3 ml Allopurinol (Zyloprim) 100 mg PO DAILY [facility] Last Admin: 04/13/17 09:37 Dose: 100 mg Aspirin (Aspirin Chewable) 81 mg PO DAILY [facility] Last Admin: 04/13/17 09:37 Dose: 81 mg Benzocaine/Menthol (Cepacol Sore Throat) 1 kimberly MT Q2H PRN PRN Reason: Sore Throat Last Admin: 04/13/17 00:34 Dose: 1 kimberly Carvedilol (Coreg) 3.125 mg PO BID [facility] Last Admin: 04/13/17 09:39 Dose: Not Given Clopidogrel Bisulfate (Plavix) 75 mg PO DAILY [facility] Last Admin: 04/13/17 09:37 Dose: 75 mg Famotidine (Pepcid) 20 mg PO DAILY [facility] Last Admin: 04/13/17 09:37 Dose: 20 mg Fluconazole (Diflucan) 100 mg PO STAT STA Stop: 04/13/17 12:51 Fluticasone Propionate (Flonase) 0 spr THERESA DAILY [facility] Last Admin: 04/13/17 09:36 Dose: 2 spr Heparin Sodium (Porcine) (Heparin) 5,000 units SC Q12 [facility] Last Admin: 04/13/17 09:37 Dose: 5,000 units Piperacillin Sod/Tazobactam Sod (Zosyn 2.25 Gm Iv Premix) 2.25 gm in 50 mls @ 100 mls/hr IVPB Q8H [facility] Last Admin: 04/13/17 04:09 Dose: 100 mls/hr Methylprednisolone (Solu-Medrol) 40 mg IVP Q12H [facility] Last Admin: 04/12/17 23:46 Dose: 40 mg Promethazine HCl/Codeine (Phenergan/Codeine Oral Syrup) 5 ml PO Q4 PRN PRN Reason: Cough Last Admin: 04/13/17 00:34 Dose: 5 ml Rosuvastatin Calcium (Crestor) 5 mg PO HS [facility] Last Admin: 04/12/17 21:29 Dose: 5 mg Saccharomyces Boulardii (Florastor) 250 mg PO BID [facility] Last Admin: 04/13/17 09:37 Dose: 250 mg Tamsulosin HCl (Flomax) 0.4 mg PO DAILY [facility] Last Admin: 04/13/17 09:37 Dose: 0.4 mg - Labs Labs: 04/13/17 07:16 04/13/17 07:16 PT 13.6 SECONDS (9.7-12.2) H 04/09/17 15:48 INR 1.2 04/09/17 15:48 APTT 32 SECONDS (21-34) 04/09/17 15:48 - Constitutional Appears: No Acute Distress, Chronically Ill - Head Exam Head Exam: ATRAUMATIC, NORMAL INSPECTION - Eye Exam Eye Exam: EOMI, Normal appearance - Neck Exam Neck Exam: Normal Inspection. absent: Tenderness - Respiratory Exam Respiratory Exam: Rhonchi, NORMAL BREATHING PATTERN - Cardiovascular Exam Cardiovascular Exam: REGULAR RHYTHM, +S1 - GI/Abdominal Exam GI & Abdominal Exam: Soft. absent: Tenderness - Extremities Exam Extremities Exam: Normal Inspection. absent: Tenderness - Neurological Exam Neurological Exam: Alert, CN II-XII Intact - Skin Skin Exam: Dry, Warm Assessment and Plan (1) CKD (chronic kidney disease) stage 3, GFR 30-59 ml/min Status: Acute (2) Congestive heart failure Status: Acute - Assessment and Plan (Free Text) Plan: Add lasix
[2017-04-13] MEDS: MethylPREDNISolone 40 mg Vial IVP SCH (14:57)
[2017-04-13 14:59] VITALS: BP 139/84
[2017-04-13 16:23] VITALS: PULSE 90
== END 2017-04-13 15:58 | disposition home or self-care (01) | DRG 544 ==
LOC: C.ER 14:15 → C.9E 17:14 → C.5S 18:45
PROVIDERS: ADMIT Hospitalist; ATTEND Hospitalist
DX: I13.0 Hypertensive heart and chronic kidney disease with heart failure and stage 1 through stage 4 chronic kidney disease, or unspecified chronic kidney disease (principal); N17.9 Acute kidney failure, unspecified; I50.22 Chronic systolic (congestive) heart failure; N18.9 Chronic kidney disease, unspecified; J01.00 Acute maxillary sinusitis, unspecified; J40 Bronchitis, not specified as acute or chronic; Z95.810 Presence of automatic (implantable) cardiac defibrillator; I25.10 Atherosclerotic heart disease of native coronary artery without angina pectoris; Z95.5 Presence of coronary angioplasty implant and graft; E78.5 Hyperlipidemia, unspecified; I25.2 Old myocardial infarction; Z87.891 Personal history of nicotine dependence; M10.9 Gout, unspecified; J34.2 Deviated nasal septum; J34.3 Hypertrophy of nasal turbinates

== ENCOUNTER 2018-05-17 09:57 | Emergency (ER) | payer OTHER ==
[2018-05-17 09:57] VITALS: BMI 34.3
[2018-05-17 10:19] VITALS: RESP 18
--- NOTE | 2018-05-17 10:19 | C.PDOC ---
History Of Present Illness 62 year old male with PMHx of Cardia Arrhythmia with AICD, HTN, HLD, systolic CHF, CAD s/p 4 stents & SD (Nov 2014) presents with complaints of painful rash x 2 days that started on his back and spread anteriorly sparing the lateral aspect of his torso. He describes the rash as stinging, constant and rates it a 8/10. He has attempted to use protroleum jelly for his symptoms without any relief. He denies any fever, chills, chest pain, Worsening SOB, abdominal pain, nausea, vomiting, changes in bowel habits or urinary symptoms. ROS: As stated above. Pmhx: Cardia Arrhythmia with AICD, HTN, HLD, systolic CHF on LifeVest, CAD s/p 4 stents, Hx of SD (Nov 2014) Pshx: 4 coronary stents (Nov 2014 at [facility]); Triple bypass 2014; AICD 08/2015 FamilyHx: dad- heart disease Social Hx: former smoker- used to smoke 3ppd x many years, quit in 1998. former ETOH use- drank heavily and does not drink anymore. denies illicit drug use. lives with brother. cannot work due to heart condition Allergies: benzalkonium chloride, contact metal agent, seafood PMD: [facility]. <Cris Archuleta - Last Filed: 05/17/18 10:47> History Per: Patient <Cris Archuleta - Last Filed: 05/17/18 10:47> <Leona Adkins - Last Filed: 05/17/18 17:39> Time Seen by Provider: 05/17/18 10:18 Chief Complaint (Nursing): Abnormal Skin Integrity Past Medical History Reviewed: Historical Data, Nursing Documentation, Vital Signs - Medical History PMH: Cardia Arrhythmia, CHF, HTN, Hypercholesterolemia, Kidney Stones, Chronic Kidney Disease Denies: Alzheimer's Disease, Anemia, Asthma, Bipolar Disorder, Bronchitis, COPD, Crohn's Disease, Depression, Diverticulitis, Emphysema, Fibromyalgia, Fractures, Gastrointestinal Ulcer, Gall Bladder Disease, HIV, Hyperthyroidism, Hypothyroidism, Migraine, Mitral Valve Prolapse, Osteoporosis, Pancreatitis, Paranoia, Parkinson's Disease, Peripheral Edema, Pneumonia, Post Traumatic Stress Disorder, Schizophrenia, Seizures, Sickle Cell Disease, Sexually Transmitted Disease, Sleep Apnea, TIA Surgical History: CABG, Coronary Stent, Pacemaker (ICD) Denies: Appendectomy, Cholecystectomy - [facility] Procedures CONTRAST ARTERIOGRAM-LEG (11/22/13) CORONAR ARTERIOGR-2 CATH (11/22/13) FLUOROSCOPY OF LEFT HEART USING LOW OSMOLAR CONTRAST (02/18/15) FLUOROSCOPY OF SINGLE CORONARY ARTERY USING L OSM CONTRAST (02/18/15) INJECT/INFUSE PLATELET INHIBITOR (11/22/13) INSERTION OF THREE VASCULAR STENTS (11/22/13) INSRT OF DRUG-ELUTING CORON ARTERY STENTS(S) (11/22/13) LEFT HEART CARDIAC CATH (11/22/13) LT HEART ANGIOCARDIOGRAM (11/22/13) MEASURE CARDIAC SAMPL & PRESSURE, BILATERAL, PERC (02/18/15) PERCUTANEOUS TRANSLUMINAL CORONARY ANGIOPLASTY [PTCA] (11/22/13) PROCEDURE ON SINGLE VESSEL (11/22/13) Family History: States: Hypertension - Social History Hx Alcohol Use: No Hx Substance Use: No - Immunization History Hx Tetanus Toxoid Vaccination: No Hx Influenza Vaccination: No Hx Pneumococcal Vaccination: No <Cris Archuleta - Last Filed: 05/17/18 10:47> Vital Signs: Last Vital Signs Temp 98.4 F 05/17/18 11:22 Pulse 77 05/17/18 11:22 Resp 18 05/17/18 11:22 BP 124/84 05/17/18 11:22 Pulse Ox 97 05/17/18 11:22 - [facility] Procedures CONTRAST ARTERIOGRAM-LEG (11/22/13) CORONAR ARTERIOGR-2 CATH (11/22/13) FLUOROSCOPY OF LEFT HEART USING LOW OSMOLAR CONTRAST (02/18/15) FLUOROSCOPY OF SINGLE CORONARY ARTERY USING L OSM CONTRAST (02/18/15) INJECT/INFUSE PLATELET INHIBITOR (11/22/13) INSERTION OF THREE VASCULAR STENTS (11/22/13) INSRT OF DRUG-ELUTING CORON ARTERY STENTS(S) (11/22/13) LEFT HEART CARDIAC CATH (11/22/13) LT HEART ANGIOCARDIOGRAM (11/22/13) MEASURE CARDIAC SAMPL & PRESSURE, BILATERAL, PERC (02/18/15) PERCUTANEOUS TRANSLUMINAL CORONARY ANGIOPLASTY [PTCA] (11/22/13) PROCEDURE ON SINGLE VESSEL (11/22/13) <Leona Adkins - Last Filed: 05/17/18 17:39> Review Of Systems Except As Marked, All Systems Reviewed And Found Negative. (As per HPI) <Aria Archuletanatalie - Last Filed: 05/17/18 10:47> Physical Exam - Physical Exam Appears: Well, Non-toxic Skin: Other (Erythematous Vesicular Rash (Begins on right paraspinal region at T7. spreads anteriroly to chest sparing lateral torso. ) Head: Atraumatic, Normacephalic Eye(s): bilateral: Normal Inspection Nose: Normal Oral Mucosa: Moist Tongue: Normal Appearing Lips: Normal Appearing Teeth: Normal Dentition Gingiva: Normal Appearing Throat: Normal Cardiovascular: Rhythm Regular, No Friction Rub, No Murmur, Other (+S3) Respiratory: Normal Breath Sounds, No Accessory Muscle Use, No Rales, No Rhonchi, No Wheezing Gastrointestinal/Abdominal: Normal Exam, Soft, No Tenderness Back: Other (See Skin) Extremity: No Pedal Edema Neurological/Psych: Oriented x3, Normal Speech, Normal Cognition <Cris Archuleta - Last Filed: 05/17/18 10:47> Medical Decision Making Medical Decision Making: Herpes Zoster (Shingles) Mgmt: Prednisone 60 ONCE Tylenol 675 ONCE Will send home with Acyclovir and Prednisone Patient advised to follow up with PCP ([facility] within 2-3 da ys) <Cris Archuleta - Last Filed: 05/17/18 10:47> Medical Decision Making: Patient evaluated with the resident. Agree with assessment and plan. <Leona Adkins - Last Filed: 05/17/18 17:39> Disposition Counseled Patient/Family Regarding: Diagnosis, Need For Followup, Rx Given - Disposition Disposition Time: 11:03 <Cris Archuleta - Last Filed: 05/17/18 10:47> <Leona Adkins - Last Filed: 05/17/18 17:39> - Disposition Referrals: [facility] [Outside] Disposition: HOME/ ROUTINE Condition: FAIR Additional Instructions: Please follow op with your primary medical physician within 2-3 days of discharge You may take Tylenol for the pain as needed. Prescriptions: RX: Acyclovir [Zovirax] 800 mg PO 5XD 7 Days #35 tab predniSONE [Prednisone] 60 mg PO DAILY #6 tab Instructions: Shingles (DC) Forms: [facility] (Salvadorean) - Clinical Impression Clinical Impression: Herpes zoster
[2018-05-17 11:28] VITALS: BP 124/84; PULSE 77; TEMP 98.4; O2SAT 97
== END 2018-05-17 11:22 | disposition home or self-care (01) ==
LOC: C.ER 09:57
DX: B02.9 Zoster without complications (principal); E78.00 Pure hypercholesterolemia, unspecified; I12.9 Hypertensive chronic kidney disease with stage 1 through stage 4 chronic kidney disease, or unspecified chronic kidney disease; N18.9 Chronic kidney disease, unspecified; I25.10 Atherosclerotic heart disease of native coronary artery without angina pectoris; Z87.891 Personal history of nicotine dependence

== ENCOUNTER 2018-08-12 13:17 | Outpatient (CLI) | payer OTHER | END 2018-08-12 13:18 | disposition home or self-care (01) | LOC: C.LAB 13:17 | DX: N18.3 Chronic kidney disease, stage 3 (moderate) (principal) ==